=== PATIENT | female | born 1985 | race Caucasian/White ===

== ENCOUNTER 2019-04-17 10:02 | Emergency (ER) | payer BC, OTHER ==
[2019-04-17 10:07] VITALS: TEMP 98
[2019-04-17] MEDS ORDERED: SODIUM CHLORIDE 0.9% 1,000 ML IV STA (10:19)
[2019-04-17] MEDS ORDERED: ONDANSETRON 4 MG/2 ML VIAL IVP STA (10:19)
[2019-04-17] MEDS ORDERED: KETOROLAC 30 MG/ML 1 ML VIAL IVP STA (10:19)
--- NOTE | 2019-04-17 10:24 | ED ---
Back Pain HPI - General Chief Complaint: Back Pain/Injury Stated Complaint: Poss Kidney Stones Time Seen by Provider: 04/17/19 10:07 Source: patient Limitations: no limitations - History of Present Illness Initial Comments: Patient is a 34-year-old female presenting to emergency Department with complaints of right sided flank pain 3 days. Patient states her pain started in her right back 3 days ago and the pain has been steadily increasing. Patient describes her pain as intermittent, sharp, contraction-like. Patient has intermittent nausea and sweats as well. Patient denies any fever, chills, vomiting, diarrhea. Admits to mild burning with urination, no hematuria. Patient states she has had a previous kidney stone approximately 6 or 7 years ago and this feels similar nature. Patient has no other complaints at this time. Patient admits to history of tubal ligation, no other abdominal surgeries. Last bowel movement was yesterday was normal. Upon arrival to ER, vital signs are stable. - Related Data Previous Rx's Medication Instructions Recorded Ketorolac [Toradol] 10 mg PO Q8HR #15 tab 04/17/19 Ondansetron Odt [Zofran Odt] 4 mg PO Q8HR PRN #10 tab 04/17/19 Tamsulosin [Flomax] 0.4 mg PO DAILY #7 cap 04/17/19 Allergies Allergy/AdvReac Type Severity Reaction Status Date / Time Penicillins Allergy Unknown Verified 04/17/19 11:27 Childhood Review of Systems ROS Statement: Those systems with pertinent positive or pertinent negative responses have been documented in the HPI. ROS Other: All systems not noted in ROS Statement are negative. Past Medical History Past Medical History: Atrial Fibrillation History of Any Multi-Drug Resistant Organisms: None Reported Past Surgical History: Tubal Ligation Past Psychological History: No Psychological Hx Reported Smoking Status: Never smoker Past Alcohol Use History: None Reported Past Drug Use History: None Reported General Exam - General Exam Comments Initial Comments: GENERAL: Well-appearing, well-nourished and in no acute distress, appears uncomfortable. HEAD: Atraumatic, normocephalic. EYES: Pupils equal round and reactive to light, extraocular movements intact, sclera anicteric, conjunctiva are normal. ENT: TMs normal, nares patent, oropharynx clear without exudates. Moist mucous membranes. NECK: Normal range of motion, supple without lymphadenopathy or JVD. LUNGS: Breath sounds clear to auscultation bilaterally and equal. No wheezes rales or rhonchi. HEART: Regular rate and rhythm without murmurs, rubs or gallops. ABDOMEN: Right flank pain with palpation, right sided abdominal pain. Negative obturator, negative Rovsing sign. Soft, normoactive bowel sounds. No guarding, no rebound. No masses appreciated. : Deferred EXTREMITIES: Normal range of motion, no pitting or edema. No clubbing or cyanosis. NEUROLOGICAL: Cranial nerves II through XII grossly intact. Normal speech, normal gait. PSYCH: Normal mood, normal affect. SKIN: Warm, Dry, normal turgor, no rashes or lesions noted. Limitations: no limitations Course Vital Signs 04/17/19 04/17/19 10:04 12:22 Temperature 98 F Pulse Rate 89 70 Respiratory 16 18 Rate Blood Pressure 136/88 128/78 O2 Sat by Pulse 98 98 Oximetry Medical Decision Making - Medical Decision Making Patient is a 34-year-old female presenting with right flank pain 3 days. Patient describes the pain as intermittent, colicky. Patient has associated nausea and sweats with increasing pain. On exam patient has right-sided CVA tenderness as well as right abdominal pain. No fever, chills, vomiting, d iarrhea. Vital signs are stable upon arrival. CBC, CMP is normal. UA is normal. CT shows a nonobstructing 0.4 cm mid posterior right kidney stone. Patient declined vaginal exam at this time. Patient was given fluids, Zofran, Toradol for pain. Patient reports improvement in her symptoms. Patient is stable for discharge at this time. Patient will be discharged with pain medication, Flomax, Zofran. Patient is in agreement with this plan of care. Patient will follow up with her PCP as needed. Return parameters were discussed with the patient she verbalized understanding. Case discussed with Dr. Duval. - Lab Data Result diagrams: 04/17/19 10:32 04/17/19 10:32 Lab Results 04/17/19 04/17/19 04/17/19 Range/Units 10: 10: 10:32 WBC 6.5 (3.8-10.6) k/uL RBC 4.63 (3.80-5.40) m/uL Hgb 13.7 (11.4-16.0) gm/dL Hct 38.9 (34.0-46.0) % MCV 84.0 (80.0-100.0) fL MCH 29.5 (25.0-35.0) pg MCHC 35.2 (31.0-37.0) g/dL RDW 13.0 (11.5-15.5) % Plt Count 224 (150-450) k/uL Neutrophils % 57 % Lymphocytes % 34 % Monocytes % 4 % Eosinophils % 3 % Basophils % 1 % Neutrophils # 3.7 (1.3-7.7) k/uL Lymphocytes # 2.2 (1.0-4.8) k/uL Monocytes # 0.3 (0-1.0) k/uL Eosinophils # 0.2 (0-0.7) k/uL Basophils # 0.0 (0-0.2) k/uL Sodium (137-145) mmol/L Potassium (3.5-5.1) mmol/L Chloride (98-107) mmol/L Carbon Dioxide (22-30) mmol/L Anion Gap mmol/L BUN (7-17) mg/dL Creatinine (0.52-1.04) mg/dL Est GFR (CKD-EPI)AfAm (>60 ml/min/1.73 sqM) Est GFR (CKD-EPI)NonAf (>60 ml/min/1.73 sqM) Glucose (74-99) mg/dL Calcium (8.4-10.2) mg/dL Total Bilirubin (0.2-1.3) mg/dL AST (14-36) U/L ALT (9-52) U/L Alkaline Phosphatase (38-126) U/L Total Protein (6.3-8.2) g/dL Albumin (3.5-5.0) g/dL Urine Color Yellow Urine Appearance Clear (Clear) Urine pH 5.5 (5.0-8.0) Ur Specific Protivin 1.016 (1.001-1.035) Urine Protein Negative (Negative) Urine Glucose (UA) Negative (Negative) Urine Ketones Negative (Negative) Urine Blood Negative (Negative) Urine Nitrite Negative (Negative) Urine Bilirubin Negative (Negative) Urine Urobilinogen <2.0 (<2.0) mg/dL Ur Leukocyte Esterase Negative (Negative) Urine HCG, Qual Not Detected (Not Detectd) 04/17/19 Range/Units 10:32 WBC (3.8-10.6) k/uL RBC (3.80-5.40) m/uL Hgb (11.4-16.0) gm/dL Hct (34.0-46.0) % MCV (80.0-100.0) fL MCH (25.0-35.0) pg MCHC (31.0-37.0) g/dL RDW (11.5-15.5) % Plt Count (150-450) k/uL Neutrophils % % Lymphocytes % % Monocytes % % Eosinophils % % Basophils % % Neutrophils # (1.3-7.7) k/uL Lymphocytes # (1.0-4.8) k/uL Monocytes # (0-1.0) k/uL Eosinophils # (0-0.7) k/uL Basophils # (0-0.2) k/uL Sodium 138 (137-145) mmol/L Potassium 4.1 (3.5-5.1) mmol/L Chloride 104 (98-107) mmol/L Carbon Dioxide 23 (22-30) mmol/L Anion Gap 11 mmol/L BUN 13 (7-17) mg/dL Creatinine 0.75 (0.52-1.04) mg/dL Est GFR (CKD-EPI)AfAm >90 (>60 ml/min/1.73 sqM) Est GFR (CKD-EPI)NonAf >90 (>60 ml/min/1.73 sqM) Glucose 126 H (74-99) mg/dL Calcium 9.5 (8.4-10.2) mg/dL Total Bilirubin 0.9 (0.2-1.3) mg/dL AST 36 (14-36) U/L ALT 53 H (9-52) U/L Alkaline Phosphatase 73 (38-126) U/L Total Protein 7.2 (6.3-8.2) g/dL Albumin 4.3 (3.5-5.0) g/dL Urine Color Urine Appearance (Clear) Urine pH (5.0-8.0) Ur Specific Protivin (1.001-1.035) Urine Protein (Negative) Urine Glucose (UA) (Negative) Urine Ketones (Negative) Urine Blood (Negative) Urine Nitrite (Negative) Urine Bilirubin (Negative) Urine Urobilinogen (<2.0) mg/dL Ur Leukocyte Esterase (Negative) Urine HCG, Qual (Not Detectd) Disposition Clinical Impression: Kidney stone on right side, Abdominal pain Disposition: HOME SELF-CARE Condition: Stable Instructions (If sedation given, give patient instructions): Kidney Stones (ED) Additional Instructions: Please return to the Emergency Department if symptoms worsen or any other concerns. Follow-up with PCP or urology as discussed. Prescriptions: Tamsulosin [Flomax] 0.4 mg PO DAILY #7 cap Ketorolac [Toradol] 10 mg PO Q8HR #15 tab Ondansetron Odt [Zofran Odt] 4 mg PO Q8HR PRN #10 tab PRN Reason: Nausea Is patient prescribed a controlled substance at d/c from ED?: No Referrals: Tye Sanders III, MD [Primary Care Provider] - 1-2 days
[2019-04-17 10:45] LABS: Appearance,Urine Clear (Clear); Bilirubin,Urine Negative (Negative); Blood,Urine Negative (Negative); Color,Urine Yellow; Glucose,Urine (UA) Negative (Negative); Ketones,Urine Negative (Negative); Leukocyte Esterase,Urine Negative (Negative); Nitrite,Urine Negative (Negative); PH, Urine 5.5 (5.0-8.0); Protein,Urine Negative (Negative); Specific Gravity,Urine 1.016 (1.001-1.035); Urobilinogen,Urine <2.0 mg/dL (<2.0)
[2019-04-17 10:47] LABS: Basophils % (A) 1 %; Eosinophils # (A) 0.2 k/uL (0-0.7); Eosinophils % (A) 3 %; HCT 38.9 % (34.0-46.0); HGB 13.7 gm/dL (11.4-16.0); Lymphocytes # (A) 2.2 k/uL (1.0-4.8); Lymphocytes % (A) 34 %; MCH 29.5 pg (25.0-35.0); MCHC 35.2 g/dL (31.0-37.0); Mean Platelet Volume 5.6; Monocytes # (A) 0.3 k/uL (0-1.0); Monocytes % (A) 4 %; Neutrophils # (A) 3.7 k/uL (1.3-7.7); Neutrophils % (A) 57 %; Platelet Count 224 k/uL (150-450); RBC 4.63 m/uL (3.80-5.40); WBC 6.5 k/uL (3.8-10.6)
[2019-04-17 10:57] LABS: ALT 53 U/L (9-52); AST 36 U/L (14-36); African American GFR (CKD) >90 (>60 ml/min/1.73 sqM); Albumin 4.3 g/dL (3.5-5.0); Alkaline Phosphatase 73 U/L (38-126); Anion Gap 11 mmol/L; Blood Urea Nitrogen 13 mg/dL (7-17); Calcium 9.5 mg/dL (8.4-10.2); Carbon Dioxide 23 mmol/L (22-30); Chloride 104 mmol/L (98-107); Glucose 126 mg/dL (74-99); Potassium 4.1 mmol/L (3.5-5.1); Sodium 138 mmol/L (137-145); Total Bilirubin 0.9 mg/dL (0.2-1.3); Total Protein 7.2 g/dL (6.3-8.2)
--- NOTE | 2019-04-17 11:23 | CT ---
EXAMINATION TYPE: CT abdomen pelvis wo con DATE OF EXAM: 04/17/2019 COMPARISON: None INDICATION: Right flank pain DLP: 777.9 mGycm, Automated exposure control for dose reduction was used. CONTRAST: None Study performed without Oral Contrast TECHNIQUE: Axial images were obtained from above the diaphragm to the pubic rami in the axial plane a t 5 mm thick sections. Reconstructed images are reviewed on the computer in the coronal plane. FINDINGS: Limited CT sections are obtained the lung bases. The lung bases are clear. CT ABDOMEN: Liver: Normal Spleen: Normal Pancreas: Normal Adrenal glands: The adrenal glands are normal. Gallbladder: Normal Kidneys: No masses are evident. No hydronephrosis is present. No cysts are present. There is a non obstructing 0.4 cm calcification mid posterior right kidney. Aorta: Normal Inferior vena cava: Normal. CT PELVIS: Loops of bowel within the abdomen and pelvis are normal. Study is without oral contrast limiting bowel evaluation. Appendix: Normal as visualized. Urinary bladder: Normal. Genitourinary structures: Uterus and adnexal regions appear within normal limits. Tampon is present Osseous structures: No suspicious lytic or sclerotic lesions. IMPRESSIONS: 1. Nonobstructing right renal stone.
[2019-04-17] MEDS ORDERED: ACET/COD 300 MG/30 MG STARTER PACK 6 TAB BTL PO STA (11:48)
[2019-04-17 12:27] VITALS: BP 128/78; PULSE 70; RESP 18
== END 2019-04-17 12:22 | disposition home or self-care (01) ==
LOC: EC 10:02
DX: N20.0 Calculus of kidney (principal); Z88.0 Allergy status to penicillin; Z98.51 Tubal ligation status; Z53.20 Procedure and treatment not carried out because of patient's decision for unspecified reasons
CPT/HCPCS: 99284; 96374; 96375; 96361; 36415; 80053; 85025; 81003; 81025; 74176; J2405; J1885

== ENCOUNTER 2020-01-21 22:27 | Emergency (ER) | payer BC, OTHER ==
--- NOTE | 2020-01-21 23:08 | XR ---
EXAMINATION TYPE: XR ankle complete RT DATE OF EXAM: 01/21/2020 COMPARISON: NONE HISTORY: Ankle pain TECHNIQUE: 3 views FINDINGS: There is nondisplaced transverse fracture of the lateral malleolus. There is lateral soft t issue swelling. There is no dislocation. Joint spaces are fairly normal. The talus appears intact. IMPRESSION: Acute nondisplaced transverse fracture of the lateral malleolus.
--- NOTE | 2020-01-21 23:53 | ED ---
General Adult HPI - General Chief complaint: Extremity Injury, Lower Stated complaint: RT ankle injury Time Seen by Provider: 01/21/20 22:53 Source: patient, RN notes reviewed, old records reviewed Mode of arrival: ambulatory Limitations: no limitations - History of Present Illness Initial comments: 35-year-old female patient presents to ED with chief complaint of right ankle injury. Patient fourth that she stepped off of a step and had a right ankle inversion injury. Reports she landed on her hip. Denies any trauma to head or neck. Denies any use of blood thinners. Denies any chance of being . She complains right ankle pain. Denies any other complaints. Systemic: Pt denies fatigue, fever/chills, rash. Pt denies weakness, night sweat s, weight loss. Neuro: Pt denies headache, visual disturbances, syncope or pre-syncope. HEENT: Pt denies ocular discharge or irritation, otalgia, rhinorrhea, pharyngitis or notable lymphadenopathy. Cardiopulmonary: Pt denies chest pain, SOB, heart palpitations, dyspnea on exertion. Abdominal/GI: Pt denies abdominal pain, n/v/d. : Pt denies dysuria, burning w/ urination, frequency/urgency. Denies new onset urinary or bowel incontinence. Neuro: Pt denies new onset weakness, paresthesias. - Related Data Previous Rx's Medication Instructions Recorded Ketorolac [Toradol] 10 mg PO Q8HR #15 tab 04/17/19 Ondansetron Odt [Zofran Odt] 4 mg PO Q8HR PRN #10 tab 04/17/19 Tamsulosin [Flomax] 0.4 mg PO DAILY #7 cap 04/17/19 Allergies Allergy/AdvReac Type Severity Reaction Status Date / Time Penicillins Allergy Unknown Verified 04/17/19 11:27 Childhood Review of Systems ROS Statement: Those systems with pertinent positive or pertinent negative responses have been documented in the HPI. ROS Other: All systems not noted in ROS Statement are negative. Past Medical History Past Medical History: Atrial Fibrillation History of Any Multi-Drug Resistant Organisms: None Reported Past Surgical History: Tubal Ligation Past Psychological History: No Psychological Hx Reported Smoking Status: Never smoker Past Alcohol Use History: None Reported Past Drug Use History: None Reported General Exam - General Exam Comments Initial Comments: Constitutional: NAD, AOX3, Pt has pleasant affect. HEENT: NC/AT, trachea midline, neck supple, no lymphadenopathy. Posterior pharynx non erythematous, without exudates. External ears appear normal, without discharge. Mucous membranes moist. Eyes PERRLA, EOM intact. There is no scleral icterus. No pallor noted. Cardiopulmonary: RRR, no murmurs, rubs or gallops, no JVD noted. Lungs CTAB in anterior and posterior gutierrez. No peripheral edema. Abdominal exam: Abdomen soft and non-distended. Abdomen non-tender to palpation in all 4 quadrants. Bowel sounds active in LLQ. No hepatosplenomegaly. No ecchymosis Neuro: CN II-XII grossly intact. No nuchal rigidity. No raccon eyes, no mckeon sign, no hemotympanum. No cervical spinal tenderness. MSK: Right lateral malleolar region is tender to palpation. There is soft tissue swelling noted. Other areas of tenderness on for ankle. No proximal tib-fib tenderness. No hip tenderness. Lungs are equal length. Posterior tibialis pulses +2 bilaterally. Patient placed in a posterior ankle splint. Neurovascular intact before and after splint placement. Limitations: no limitations Course Vital Signs 01/21/20 01/21/20 22:35 23:32 Temperature 98.4 F 98.8 F Pulse Rate 102 H 84 Respiratory 18 18 Rate Blood Pressure 143/97 149/110 O2 Sat by Pulse 100 98 Oximetry Medical Decision Making - Medical Decision Making 35-year-old female patient was evaluated for evaluation of right ankle injury at that ankle inversion injury. Patient vital signs the some mild hypertension stable. Physical exam does display right distal fibula fracture. Patient placed a posterior ankle splint. Neurovascular intact before and after splint placement. Will follow up with orthopedic surgeon tonsils primary care provider. Will use crutches. Will not bear weight on lower extremity. Return to ER if condition worsens. Case discussed with Dr. Gee. Disposition Clinical Impression: Fracture of distal fibula Disposition: HOME SELF-CARE Condition: Stable Instructions (If sedation given, give patient instructions): Ankle Fracture (ED) Additional Instructions: Follow-up with primary care provider as well as orthopedic consult tomorrow. Continue to wear splint. Use crutches do not bear weight on right lower extremity. Return to ER if condition worsens. Is patient prescribed a controlled substance at d/c from ED?: No Referrals: Tye Sanders III, MD [Primary Care Provider] - 1-2 days Harshad Harding DO [Doctor of Osteopathic Medicine] - 1-2 days
[2020-01-22 10:30] VITALS: BP 136/93; PULSE 84; RESP 18; TEMP 98.8
== END 2020-01-22 00:13 | disposition home or self-care (01) ==
LOC: EC 22:27
DX: S82.61XA Displaced fracture of lateral malleolus of right fibula, initial encounter for closed fracture (principal); I10 Essential (primary) hypertension; Z88.0 Allergy status to penicillin; W01.0XXA Fall on same level from slipping, tripping and stumbling without subsequent striking against object, initial encounter
CPT/HCPCS: 99284

== ENCOUNTER 2022-01-19 05:33 | Day surgery (SDC) | payer BC ==
--- NOTE | 2022-01-18 07:19 | P.HPOB ---
History of Present Illness H&P Date: 01/18/22 Chief Complaint: Menorrhagia This patient is a pleasant 37 yr female with long standing menorrhagia who is requesting endometrial ablation for treatment. Evaluation has included a pelvic ultrasound which showed a normal endometrium/uterus. She is not interested in hormonal methods to control her bleeding. Review of Systems Genitourinary: Reports menorrhagia Past Medical History Past Medical History: No Reported History History of Any Multi-Drug Resistant Organisms: None Reported Past Surgical History: Tubal Ligation Past Anesthesia/Blood Transfusion Reactions: No Reported Reaction Past Psychological History: No Psychological Hx Reported Smoking Status: Never smoker Past Alcohol Use History: None Reported Past Drug Use History: None Reported Medications and Allergies Home Medications Medication Instructions Recorded Confirmed Type Ketorolac [Toradol] 10 mg PO Q8HR #15 tab 04/17/19 Rx Ondansetron Odt [Zofran Odt] 4 mg PO Q8HR PRN #10 tab 04/17/19 Rx Tamsulosin [Flomax] 0.4 mg PO DAILY #7 cap 04/17/19 Rx Allergies Allergy/AdvReac Type Severity Reaction Status Date / Time Penicillins Allergy Unknown Verified 04/17/19 11:27 Childhood Exam - OBG Physical Exam Abdomen: bowel sounds normal, no diffuse tenderness, no bruit present, no guarding noted, no hepatomegaly, no splenomegaly, no mass Vulva: both: normal Vagina: normal moisture, no discharge Cervix: no lesion, no discharge Uterus: normal size, normal contour Results Transvaginal ultrasound on 01/12 showed normal uterus and endometrium. Assessment and Plan Assessment: This is a pleasant 37 yr female with longstanding menorrhagia who is requesting endometrial ablation for treatment. Plan is hysteroscopy, dilation and curretage and Novasure endometrial ablation. I have discussed this surgery and risks with the patient, including: infection, bleeding, possible uterine perforation and/or thermal injury. All of her questions were answered and a written consent obtained. (1) Menorrhagia Status: Chronic Code(s): N92.0 - EXCESSIVE AND FREQUENT MENSTRUATION WITH REGULAR CYCLE SNOMED Code(s): 408955595
[~2022-01-19 05:33] MED LIST: Pre Op ABX Message 1 EACH MISC MISCELLANE ONE
[2022-01-19] MEDS ORDERED: LIDOCAINE 1% (10MG/ML) FOR IV START INTRADERMA PRN (05:43)
[2022-01-19] MEDS ORDERED: LACTATED RINGERS 1,000 ML IV SCH (05:43)
[2022-01-19] MEDS ORDERED: DEXAMETHASONE SOD PHOSPHATE 4 MG/ML 1 ML VIAL IV ONE (06:10)
[2022-01-19] MEDS ORDERED: ONDANSETRON 4 MG/2 ML VIAL ONE (06:14)
[2022-01-19] MEDS ORDERED: SUCCINYLCHOLINE CHLORIDE 100 MG/5 ML SYR IV ONE (06:48)
[2022-01-19] MEDS ORDERED: MIDAZOLAM 2 MG/2 ML VIAL ONE (06:48)
[2022-01-19] MEDS ORDERED: LIDOCAINE 2% INJ 20 MG/ML (2 ML VIAL) ONE (06:48)
[2022-01-19] MEDS ORDERED: PROPOFOL 10 MG/ML 20 ML VIAL IV ONE (06:48)
[2022-01-19] MEDS ORDERED: fentaNYL (PF) 50 MCG/ML 2 ML AMP ONE (06:48)
--- NOTE | 2022-01-19 07:27 | P.OP ---
Date of Procedure: 01/19/22 Preoperative Diagnosis: Menorrhagia Postoperative Diagnosis: Same Procedure(s) Performed: #1: Hysteroscopy. 2: Dilation and curettage. #3: NovaSure endometrial ablation. Anesthesia: MARSHALA Surgeon: Peter Gunter Estimated Blood Loss (ml): 10 Urine output (ml): 30 Pathology: other Condition: stable (Uterine curettings) Disposition: PACU Indications for Procedure: Please see dictated H&P for intimate details of this patient's admission. Brief summary this is a pleasant 37-year-old multiparous patient who is admitted to the hospital for endometrial ablation secondary to persistent menorrhagia. Patient I have discussed this procedure and risks and risks of infection, bleeding, possible uterine perforation. All the patient's questions are answered and a written consent is obtained. Operative Findings: This patient had normal-appearing endometrial cavity. Description of Procedure: This patient is taken to the operating room she is laid in the supine position. She subsequent undergoes general endotracheal anesthesia without incident. With an adequate level of anesthesia she's placed in dorsal lithotomy position. She has a vaginal perineal prep and drape. Examination under anesthesia shows a mid position uterus of normal size. Place weighted speculum posterior vagina. Bladder is drained for 30 mL of clear urine. Allis clamp was then placed on the anterior lip of the cervix. Uterus is then sounded to approximately 10-1/2 cm. Gentle dilation is then done to allow the hysteroscope easily and the uterine cavity. Using saline solution, hysteroscopy is performed. The uterine cavity appears normal. It is measured a length of 6.5 cm. Hysteroscope was then removed. More dilation is done to allow a curette easily uterine cavity a gentle but thorough 4 quadrant curettage is then done. With this done the NovaSure device is then opened and appears to be intact. It is set at a length of 6.5 cm and opens up to a width of 4.5 cm. After seating it in place it passes the cavity to retest. Is then enabled for 52 seconds at [address]. With this done the NovaSure device is then removed and appears to be intact. Hysteroscopy is performed again and the uterine cavity appears to be ablated up to the endocervix. Excellent results are noted. This done the procedure is ended. The Allis clamp and weighted speculum removed. All counts are correct 3. There are no complications. Patient is awakened from anesthesia and taken to recovery room in satisfactory condition.
[2022-01-19 07:33] VITALS: TEMP 98
[2022-01-19 08:43] VITALS: BP 132/91; PULSE 80
== END 2022-01-19 09:03 | disposition home or self-care (01) ==
LOC: OR 05:33
PROVIDERS: ATTEND Obstetrics & Gynecology
DX: N92.0 Excessive and frequent menstruation with regular cycle (principal); Z98.51 Tubal ligation status; K21.9 Gastro-esophageal reflux disease without esophagitis; Z79.899 Other long term (current) drug therapy; Z88.0 Allergy status to penicillin
CPT/HCPCS: 81025; 88305; 58563; J2250; J1100; J2405; J3010; J0330; J2704; J2001

== ENCOUNTER 2022-04-09 06:05 | Emergency (ER) | payer BC ==
[2022-04-09 06:11] VITALS: TEMP 98.9
[2022-04-09] MEDS ORDERED: SODIUM CHLORIDE 0.9% 1,000 ML IV STA (06:27)
--- NOTE | 2022-04-09 06:29 | ED ---
General Adult HPI - General Chief complaint: Chest Pain Stated complaint: Chest Pressure Time Seen by Provider: 04/09/22 06:15 Source: patient, RN notes reviewed Mode of arrival: ambulatory Limitations: no limitations - History of Present Illness Initial comments: 37-year-old female presents emergency Department with chief complaint of chest tightness. Patient states that she had COVID-19 2 weeks ago as a positive test at home. Patient states started feeling better started feeling sick again on Saturday. Patient states she just feels tightness in her chest feels like it's hard to the deep breath. Patient denies any prior lung disease doesn't that she was diagnosed with A. fib several years ago emergency department or follow with cardiology. Patient states she is having persistent palpitations denies any nausea vomiting diarrhea constipation she admits to subjective fever or chills - Related Data Previous Rx's Medication Instructions Recorded Albuterol Sulfate [Proair Hfa] 1 - 2 puff INHALATION Q4HR PRN 04/09/22 #8.5 gm Azithromycin [Zithromax Z Pack] 0 tab PO DIRECTED #6 tab 04/09/22 Allergies Allergy/AdvReac Type Severity Reaction Status Date / Time amoxicillin Allergy Unknown Verified 04/09/22 07:56 Childhood Penicillins Allergy Unknown Verified 04/09/22 07:56 Childhood Review of Systems ROS Statement: Those systems with pertinent positive or pertinent negative responses have been documented in the HPI. ROS Other: All systems not noted in ROS Statement are negative. Past Medical History Past Medical History: Atrial Fibrillation History of Any Multi-Drug Resistant Organisms: None Reported Past Surgical History: Appendectomy, Tubal Ligation Additional Past Surgical History / Comment(s): TUBES IN EARS CHILD Past Psychological History: No Psychological Hx Reported Past Alcohol Use History: None Reported Past Drug Use History: None Reported General Exam Limitations: no limitations General appearance: alert, in no apparent distress Head exam: Present: atraumatic, normocephalic, normal inspection Eye exam: Present: normal appearance, PERRL, EOMI. Absent: scleral icterus, conjunctival injection, periorbital swelling ENT exam: Present: normal exam, normal oropharynx, mucous membranes moist Neck exam: Present: normal inspection, full ROM. Absent: tenderness, meningismus, lymphadenopathy Respiratory exam: Present: normal lung sounds bilaterally. Absent: respiratory distress, wheezes, rales, rhonchi, stridor Cardiovascular Exam: Present: normal rhythm, tachycardia, normal heart sounds. 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 I do believe that this may be infectious in nature. Patient will be discharged with inhaler and antibiotics. She'll follow-up PCP return parameters discussed patient agrees - Lab Data Result diagrams: 04/09/22 06:38 04/09/22 06:38 Lab Results 04/09/22 04/09/22 04/09/22 Range/Units 06:38 06:38 06:38 WBC 6.3 (3.8-10.6) k/uL RBC 4.85 (3.80-5.40) m/uL Hgb 14.2 (11.4-16.0) gm/dL Hct 41.4 (34.0-46.0) % MCV 85.4 (80.0-100.0) fL MCH 29.2 (25.0-35.0) pg MCHC 34.2 (31.0-37.0) g/dL RDW 13.2 (11.5-15.5) % Plt Count 177 (150-450) k/uL MPV 6.7 Neutrophils % 70 % Lymphocytes % 19 % Monocytes % 8 % Eosinophils % 1 % Basophils % 0 % Neutrophils # 4.4 (1.3-7.7) k/uL Lymphocytes # 1.2 (1.0-4.8) k/uL Monocytes # 0.5 (0-1.0) k/uL Eosinophils # 0.1 (0-0.7) k/uL Basophils # 0.0 (0-0.2) k/uL PT 10.3 (9.0-12.0) sec INR 0.9 (<1.2) APTT 25.4 (22.0-30.0) sec D-Dimer 0.24 (<0.60) mg/L FEU Sodium 135 L (137-145) mmol/L Potassium 3.8 (3.5-5.1) mmol/L Chloride 100 (98-107) mmol/L Carbon Dioxide 24 (22-30) mmol/L Anion Gap 11 mmol/L BUN 9 (7-17) mg/dL Creatinine 0.73 (0.52-1.04) mg/dL Est GFR (CKD-EPI)AfAm >90 (>60 ml/min/1.73 sqM) Est GFR (CKD-EPI)NonAf >90 (>60 ml/min/1.73 sqM) Glucose 138 H (74-99) mg/dL Calcium 8.9 (8.4-10.2) mg/dL Magnesium 1.6 (1.6-2.3) mg/dL Total Bilirubin 1.2 (0.2-1.3) mg/dL AST 31 (14-36) U/L ALT 37 H (4-34) U/L Alkaline Phosphatase 94 (38-126) U/L Troponin I (0.000-0.034) ng/mL Total Protein 7.0 (6.3-8.2) g/dL Albumin 4.3 (3.5-5.0) g/dL 04/09/22 Range/Units 06:38 WBC (3.8-10.6) k/uL RBC (3.80-5.40) m/uL Hgb (11.4-16.0) gm/dL Hct (34.0-46.0) % MCV (80.0-100.0) fL MCH (25.0-35.0) pg MCHC (31.0-37.0) g/dL RDW (11.5-15.5) % Plt Count (150-450) k/uL MPV Neutrophils % % Lymphocytes % % Monocytes % % Eosinophils % % Basophils % % Neutrophils # (1.3-7.7) k/uL Lymphocytes # (1.0-4.8) k/uL Monocytes # (0-1.0) k/uL Eosinophils # (0-0.7) k/uL Basophils # (0-0.2) k/uL PT (9.0-12.0) sec INR (<1.2) APTT (22.0-30.0) sec D-Dimer (<0.60) mg/L FEU Sodium (137-145) mmol/L Potassium (3.5-5.1) mmol/L Chloride (98-107) mmol/L Carbon Dioxide (22-30) mmol/L Anion Gap mmol/L BUN (7-17) mg/dL Creatinine (0.52-1.04) mg/dL Est GFR (CKD-EPI)AfAm (>60 ml/min/1.73 sqM) Est GFR (CKD-EPI)NonAf (>60 ml/min/1.73 sqM) Glucose (74-99) mg/dL Calcium (8.4-10.2) mg/dL Magnesium (1.6-2.3) mg/dL Total Bilirubin (0.2-1.3) mg/dL AST (14-36) U/L ALT (4-34) U/L Alkaline Phosphatase (38-126) U/L Troponin I <0.012 (0.000-0.034) ng/mL Total Protein (6.3-8.2) g/dL Albumin (3.5-5.0) g/dL Disposition Clinical Impression: Acute bronchitis Disposition: HOME SELF-CARE Condition: Stable Instructions (If sedation given, give patient instructions): Acute Bronchitis (ED) Additional Instructions: Please return to the Emergency Department if symptoms worsen or any other concerns. Prescriptions: Albuterol Sulfate [Proair Hfa] 1 - 2 puff INHALATION Q4HR PRN #8.5 gm PRN Reason: difficulty in breathing Azithromycin [Zithromax Z Pack] 0 tab PO DIRECTED #6 tab Is patient prescribed a controlled substance at d/c from ED?: No Referrals: Anabell Lynne MD [Primary Care Provider] - 1-2 days Time of Disposition: 08:26
[2022-04-09 07:04] LABS: Basophils % (A) 0 %; Eosinophils # (A) 0.1 k/uL (0-0.7); Eosinophils % (A) 1 %; HCT 41.4 % (34.0-46.0); HGB 14.2 gm/dL (11.4-16.0); Lymphocytes # (A) 1.2 k/uL (1.0-4.8); Lymphocytes % (A) 19 %; MCH 29.2 pg (25.0-35.0); MCHC 34.2 g/dL (31.0-37.0); MCV 85.4 fL (80.0-100.0); Mean Platelet Volume 6.7; Monocytes # (A) 0.5 k/uL (0-1.0); Monocytes % (A) 8 %; Neutrophils # (A) 4.4 k/uL (1.3-7.7); Neutrophils % (A) 70 %; Platelet Count 177 k/uL (150-450); RBC 4.85 m/uL (3.80-5.40); RDW 13.2 % (11.5-15.5); WBC 6.3 k/uL (3.8-10.6)
[2022-04-09 07:18] LABS: ALT 37 U/L (4-34); AST 31 U/L (14-36); African American GFR (CKD) >90 (>60 ml/min/1.73 sqM); Albumin 4.3 g/dL (3.5-5.0); Alkaline Phosphatase 94 U/L (38-126); Anion Gap 11 mmol/L; Blood Urea Nitrogen 9 mg/dL (7-17); Calcium 8.9 mg/dL (8.4-10.2); Carbon Dioxide 24 mmol/L (22-30); Chloride 100 mmol/L (98-107); Glucose 138 mg/dL (74-99); Magnesium 1.6 mg/dL (1.6-2.3); Non-African American GFR(CKD) >90 (>60 ml/min/1.73 sqM); Potassium 3.8 mmol/L (3.5-5.1); Sodium 135 mmol/L (137-145); Total Bilirubin 1.2 mg/dL (0.2-1.3)
[2022-04-09 07:22] LABS: INR 0.9 (<1.2); Partial Thromboplastin Time 25.4 sec (22.0-30.0); Prothrombin Time 10.3 sec (9.0-12.0)
--- NOTE | 2022-04-09 07:39 | XR ---
EXAMINATION TYPE: XR chest 2V DATE OF EXAM: 04/09/2022 COMPARISON: 10/05/2010 HISTORY: 37-year-old female with chest pain TECHNIQUE: PA and lateral views FINDINGS: Heart normal size. Aorta and pulmonary vasculature within normal limits. No consolidation or pleural effusion. IMPRESSION: No acute cardiopulmonary process.
[2022-04-09 08:33] VITALS: BP 144/81; PULSE 102; RESP 18
== END 2022-04-09 08:35 | disposition home or self-care (01) ==
LOC: EC 06:05
DX: J40 Bronchitis, not specified as acute or chronic (principal); I48.91 Unspecified atrial fibrillation; Z88.0 Allergy status to penicillin; Z79.51 Long term (current) use of inhaled steroids; Z79.899 Other long term (current) drug therapy
CPT/HCPCS: 36415; 71046; 80053; 83735; 84484; 85025; 85379; 85610; 85730; 93005; 96360; 96361; 99284

== ENCOUNTER 2022-08-01 18:00 | Emergency (ER) | payer BC ==
[2022-08-01 18:10] VITALS: TEMP 98.6
[2022-08-01] MEDS ORDERED: diphenhydrAMINE 50 MG/ML 1 ML VIAL IVP STA (18:34)
[2022-08-01] MEDS ORDERED: methylPREDNISolone SOD SUCCI 125 MG/2 ML VIAL IM ONE (18:34)
--- NOTE | 2022-08-01 18:43 | ED ---
General Adult HPI - General Chief complaint: Skin/Abscess/Foreign Body Stated complaint: Rash,Muscle Weakness Time Seen by Provider: 08/01/22 18:25 Source: patient, RN notes reviewed Mode of arrival: ambulatory Limitations: no limitations - History of Present Illness Initial comments: 37-year-old female with no significant past medical history presents to the emergency department the chief complaint of rash. She reports that this morning she woke up and noticed a diffuse rash on her arms and she said it has progressively gotten worse throughout the day. She also complains of accompanying symptoms of generalized fatigue in her upper extremities. She has never had this before. She denies any allergies to food. She denies new detergents, lotions, or soap use. She took benadryl today without relief. She denies fever, cough, scratchy throat, difficulty in breathing, shortness of breath. - Related Data Previous Rx's Medication Instructions Recorded Albuterol Sulfate [Proair Hfa] 1 - 2 puff INHALATION Q4HR PRN 04/09/22 #8.5 gm Azithromycin [Zithromax Z Pack] 0 tab PO DIRECTED #6 tab 04/09/22 predniSONE [Deltasone] 20 mg PO DAILY 5 Days #10 tab 08/01/22 Allergies Allergy/AdvReac Type Severity Reaction Status Date / Time amoxicillin Allergy Unknown Verified 08/01/22 18:10 Childhood Penicillins Allergy Unknown Verified 08/01/22 18:10 Childhood Review of Systems ROS Statement: Those systems with pertinent positive or pertinent negative responses have been documented in the HPI. ROS Other: All systems not noted in ROS Statement are negative. Past Medical History Past Medical History: Atrial Fibrillation History of Any Multi-Drug Resistant Organisms: None Reported Past Surgical History: Appendectomy, Tubal Ligation Additional Past Surgical History / Comment(s): TUBES IN EARS CHILD Past Psychological History: No Psychological Hx Reported Smoking Status: Never smoker Past Alcohol Use History: Occasional Past Drug Use History: Marijuana General Exam Limitations: no limitations General appearance: alert, in no apparent distress Head exam: Present: atraumatic, normocephalic, normal inspection Eye exam: Present: normal appearance, PERRL, EOMI. Absent: scleral icterus, conjunctival injection, periorbital swelling ENT exam: Present: normal exam, mucous membranes moist Neck exam: Present: normal inspection. Absent: tenderness, meningismus, lymphadenopathy Respiratory exam: Present: normal lung sounds bilaterally. Absent: respiratory distress, wheezes, rales, rhonchi, stridor Cardiovascular Exam: Present: regular rate, normal rhythm, normal heart sounds. Absent: systolic murmur, diastolic murmur, rubs, gallop, clicks GI/Abdominal exam: Present: soft, normal bowel sounds. Absent: distended, tenderness, guarding, rebound, rigid Extremities exam: Present: normal inspection, full ROM, normal capillary refill. Absent: tenderness, pedal edema, joint swelling, calf tenderness Back exam: Present: normal inspection Neurological exam: Present: alert, oriented X3, CN II-XII intact Psychiatric exam: Present: normal affect, normal mood Skin exam: Present: warm, dry, intact, normal color, rash (Diffuse red, flat rash to chest and BL upper extremeties, no lesions, pustules, weeping. ) Course Vital Signs 08/01/22 08/01/22 18:08 20:00 Temperature 98.6 F Pulse Rate 83 82 Respiratory 20 16 Rate Blood Pressure 141/91 126/82 O2 Sat by Pulse 99 98 Oximetry Medical Decision Making - Medical Decision Making Was pt. sent in by a medical professional or institution (, PA, MEASUREMENT COORDINATOR, urgent care, hospital, or senior living...) When possible be specific @ -[No] Did you speak to anyone other than the patient for history (EMS, parent, family, police, friend...)? What history was obtained from this source @ -[No] Did you review nursing and triage notes (agree or disagree)? Why? @ -[I reviewed and agree with nursing and triage notes] Were old charts reviewed (outside hosp., previous admission, EMS record, old EKG, old radiological studies, urgent care reports/EKG's, senior living records)? Report findings @ -[No old charts were reviewed] Differential Diagnosis (chest pain, altered mental status, abdominal pain women, abdominal pain men, vaginal bleeding, weakness, fever, dyspnea, syncope, headache, dizziness, GI bleed, back pain, seizure, CVA, palpatations, mental health)? @ -[not applicable] EKG interpreted by me (3pts min.). @ -[As above] X-rays interpreted by me (1pt min.). @ -[None done] CT interpreted by me (1pt min.). @ -[None done] U/S interpreted by me (1pt. min.). @ -[None done] What testing was considered but not performed or refused? (CT, X-rays, U/S, labs)? Why? @ -[None] What meds were considered but not given or refused? Why? @ -[None] Did you discuss the management of the patient with other professionals (professionals i.e. Dr., PA, MEASUREMENT COORDINATOR, lab, RT, psych nurse, social service assistant, childrens club attendant, teacher, banking services officer, rn case manager hospice)? Give summary @ -[No] Was smoking cessation discussed for >3mins.? @ -[No] Was critical care preformed (if so, how long)? @ -[No] Were there social determinants of health that impacted care today? How? (Homelessness, low income, unemployed, alcoholism, drug addiction, transportation, low edu. Level, literacy, decrease access to med. care, shelter, rehab)? @ -[No] Was there de-escalation of care discussed even if they declined (Discuss DNR or withdrawal of care, Hospice)? DNR status @ -[No] What co-morbidities impacted this encounter? (DM, HTN, Smoking, COPD, CAD, Cancer, CVA, ARF, Chemo, Hep., AIDS, mental health diagnosis, sleep apnea, morbid obesity)? @ -[None] Was patient admitted / discharged? Hospital course, mention meds given and route, prescriptions, significant lab abnormalities, going to OR and other pertinent info. @ -37 year-old female presents to the emergency department with rash. She had a history and physical performed while in the emergency department physical exam reveals diffuse, flat rash on the upper extremities. PAtient was given solumedrol and benadryl with symptomatic relief. She was given a prescription for prednisone. s He was encouraged to follow up with his primary care doctor within 1-2 days if symptoms worsen or persist. Return precautions were discussed. Patient was discharged in stable condition all questions and comments were addressed. I discussed the case with MYA Lenz who agrees with the plan of care. Undiagnosed new problem with uncertain prognosis? @ -[No] Drug Therapy requiring intensive monitoring for toxicity (Heparin, Nitro, Insulin, Cardizem)? @ -[No] Were any procedures done? @ -[No] Diagnosis/symptom? @ -spontaneous urticaria Acute, or Chronic, or Acute on Chronic? @ -acute Uncomplicated (without systemic symptoms) or Complicated (systemic symptoms)? @ -uncomplicated Side effects of treatment? @ -[No] Exacerbation, Progression, or Severe Exacerbation? @ -[No] Poses a threat to life or bodily function? How? (Chest pain, [place], [place], pneumonia, PE, COPD, DKA, ARF, appy, cholecystitis, CVA, Diverticulitis, Homicidal, Suicidal, threat to staff... and all critical care pts) @ -[No] - Lab Data Result diagrams: 08/01/22 18:48 08/01/22 18:48 Lab Results 08/01/22 08/01/22 Range/Units 18:48 18:48 WBC 8.2 (3.8-10.6) k/uL RBC 4.62 (3.80-5.40) m/uL Hgb 14.0 (11.4-16.0) gm/dL Hct 39.4 (34.0-46.0) % MCV 85.2 (80.0-100.0) fL MCH 30.2 (25.0-35.0) pg MCHC 35.5 (31.0-37.0) g/dL RDW 13.4 (11.5-15.5) % Plt Count 206 (150-450) k/uL MPV 7.3 Neutrophils % 62 % Lymphocytes % 30 % Monocytes % 4 % Eosinophils % 2 % Basophils % 0 % Neutrophils # 5.0 (1.3-7.7) k/uL Lymphocytes # 2.5 (1.0-4.8) k/uL Monocytes # 0.3 (0-1.0) k/uL Eosinophils # 0.2 (0-0.7) k/uL Basophils # 0.0 (0-0.2) k/uL Sodium 136 L (137-145) mmol/L Potassium 3.9 (3.5-5.1) mmol/L Chloride 104 (98-107) mmol/L Carbon Dioxide 24 (22-30) mmol/L Anion Gap 8 mmol/L BUN 12 (7-17) mg/dL Creatinine 0.65 (0.52-1.04) mg/dL Est GFR (CKD-EPI)AfAm >90 (>60 ml/min/1.73 sqM) Est GFR (CKD-EPI)NonAf >90 (>60 ml/min/1.73 sqM) Glucose 100 H (74-99) mg/dL Calcium 9.0 (8.4-10.2) mg/dL Disposition Clinical Impression: Urticaria Disposition: HOME SELF-CARE Condition: Stable Instructions (If sedation given, give patient instructions): Acute Rash (ED) Additional Instructions: Please return to the nearest emergency department if symptoms worsen or persist. Prescriptions: predniSONE [Deltasone] 20 mg PO DAILY 5 Days #10 tab Is patient prescribed a controlled substance at d/c from ED?: No Referrals: None,Stated [Primary Care Provider] - 1-2 days Time of Disposition: 20:11
[2022-08-01 19:04] LABS: Basophils % (A) 0 %; Eosinophils # (A) 0.2 k/uL (0-0.7); Eosinophils % (A) 2 %; HCT 39.4 % (34.0-46.0); Lymphocytes # (A) 2.5 k/uL (1.0-4.8); Lymphocytes % (A) 30 %; MCH 30.2 pg (25.0-35.0); MCHC 35.5 g/dL (31.0-37.0); MCV 85.2 fL (80.0-100.0); Mean Platelet Volume 7.3; Monocytes # (A) 0.3 k/uL (0-1.0); Monocytes % (A) 4 %; Neutrophils % (A) 62 %; Platelet Count 206 k/uL (150-450); RBC 4.62 m/uL (3.80-5.40); RDW 13.4 % (11.5-15.5); WBC 8.2 k/uL (3.8-10.6)
[2022-08-01 19:17] LABS: African American GFR (CKD) >90 (>60 ml/min/1.73 sqM); Anion Gap 8 mmol/L; Blood Urea Nitrogen 12 mg/dL (7-17); Carbon Dioxide 24 mmol/L (22-30); Chloride 104 mmol/L (98-107); Glucose 100 mg/dL (74-99); Non-African American GFR(CKD) >90 (>60 ml/min/1.73 sqM); Potassium 3.9 mmol/L (3.5-5.1); Sodium 136 mmol/L (137-145)
[2022-08-01 20:01] VITALS: BP 126/82; PULSE 82; RESP 16
== END 2022-08-01 20:34 | disposition home or self-care (01) ==
LOC: EC 18:00
DX: L50.9 Urticaria, unspecified (principal); I48.91 Unspecified atrial fibrillation; F12.90 Cannabis use, unspecified, uncomplicated; Z88.0 Allergy status to penicillin
CPT/HCPCS: 36415; 80048; 85025; 99284; 96372; 96374; J1200; J2930

== ENCOUNTER → 2022-10-12 | Outpatient (CLI) | payer BC ==
--- NOTE | 2022-10-25 09:42 | EM ---
Event monitor shows sinus mechanism with PACs Normal heart rates When the patient complained of dizziness and palpitations and fluttering PACs were noted No sustained tachycardia or bradycardia arrhythmias MTDD
== END | disposition home or self-care (01) ==
LOC: RADECHMAIN 07:58
PROVIDERS: ATTEND Family Medicine
DX: R00.2 Palpitations (principal)
CPT/HCPCS: 93270

== ENCOUNTER 2023-05-01 11:01 | Emergency (ER) | payer BC ==
[2023-05-01 11:25] VITALS: TEMP 98.3
[2023-05-01] MEDS ORDERED: KETOROLAC 15 MG/ML 1 ML VIAL IVP STA (11:32)
[2023-05-01] MEDS ORDERED: ONDANSETRON 4 MG/2 ML VIAL IVP STA (11:32)
[2023-05-01] MEDS ORDERED: SODIUM CHLORIDE 0.9% 1,000 ML IV STA (11:32)
--- NOTE | 2023-05-01 11:34 | ED ---
Abdominal Pain HPI - General Chief Complaint: Abdominal Pain Stated Complaint: RIGHT ABDO/BACK PAIN Time Seen by Provider: 05/01/23 11:18 Source: patient Mode of arrival: ambulatory Limitations: no limitations - History of Present Illness Initial Comments: 38-year-old female with a past surgical history significant for appendectomy presented to the ED with a chief complaint of back pain. Patient states 2 days ago started to experience right sided back pain radiating to her right lower abdomen. Since onset, patient reports pain has worsened in severity. Associated nausea. Pain is an 8 out of 10 in severity. Pain is burning in nature. Patient describes it as feeling as if "something is ripping inside me". Denies urinary symptoms. No chest pain or shortness of breath. No changes in bowel habits. No other complaints. - Related Data Previous Rx's Medication Instructions Recorded Albuterol Sulfate [Proair Hfa] 1 - 2 puff INHALATION Q4HR PRN 04/09/22 #8.5 gm Azithromycin [Zithromax Z Pack] 0 tab PO DIRECTED #6 tab 04/09/22 predniSONE [Deltasone] 20 mg PO DAILY 5 Days #10 tab 08/01/22 Allergies Allergy/AdvReac Type Severity Reaction Status Date / Time amoxicillin Allergy Unknown Verified 05/01/23 11:06 Childhood Penicillins Allergy Unknown Verified 05/01/23 11:06 Childhood Review of Systems ROS Statement: Those systems with pertinent positive or pertinent negative responses have been documented in the HPI. ROS Other: All systems not noted in ROS Statement are negative. Past Medical History Past Medical History: Atrial Fibrillation History of Any Multi-Drug Resistant Organisms: None Reported Past Surgical History: Appendectomy, Tubal Ligation Additional Past Surgical History / Comment(s): TUBES IN EARS CHILD Past Psychological History: No Psychological Hx Reported Smoking Status: Never smoker Past Alcohol Use History: Occasional Past Drug Use History: Marijuana General Exam Limitations: no limitations General appearance: alert Eye exam: Present: normal appearance Neck exam: Present: normal inspection Respiratory exam: Present: normal lung sounds bilaterally Cardiovascular Exam: Present: regular rate, normal rhythm GI/Abdominal exam: Present: soft (Diffuse right-sided abdominal tenderness to palpation. Abdomen soft. No rebound guarding or rigidity. Right CVA tenderness to percussion.) Neurological exam: Present: alert, oriented X3 Skin exam: Present: warm, dry Course Vital Signs 05/01/23 11:06 Temperature 98.3 F Pulse Rate 75 Respiratory 16 Rate O2 Sat by Pulse 95 Oximetry Medical Decision Making - Medical Decision Making Was pt. sent in by a medical professional or institution (DARIUS Stoll, [employer] FOUNDER AND CHIEF STRATEGY OFFICER, urgent care, hospital, or retirement...) When possible be specific @ -No Did you speak to anyone other than the patient for history (EMS, parent, family, police, friend...)? What history was obtained from this source @ -No Did you review nursing and triage notes (agree or disagree)? Why? @ -I reviewed and agree with nursing and triage notes Were old charts reviewed (outside hosp., previous admission, EMS record, old EKG, old radiological studies, urgent care reports/EKG's, retirement records)? Report findings @ -No old charts were reviewed Differential Diagnosis (chest pain, altered mental status, abdominal pain women, abdominal pain men, vaginal bleeding, weakness, fever, dyspnea, syncope, headache, dizziness, GI bleed, back pain, seizure, CVA, palpatations, mental health, musculoskeletal)? @ -Differential Abdominal Pain Women: Appendicitis, Cholecystitis, diverticulosis, ischemic bowel, pancreatitis, hepatitis, UTI, gastroenteritis, AAA, incarcerated hernia, bowel obstruction, constipation, inflammatory bowel, hepatitis, peptic ulcer disease, splenic infa rction, perforated viscus, vulvitis, ovarian torsion, PID, kidney stone, placenta abruption, this is not meant to be an all-inclusive list EKG interpreted by me (3pts min.). @ -None X-rays interpreted by me (1pt min.). @ -None done CT interpreted by me (1pt min.). @ -CT abdomen and pelvis without contrast interpreted by me showing no evidence of acute finding. U/S interpreted by me (1pt. min.). @ -None done What testing was considered but not performed or refused? (CT, X-rays, U/S, labs)? Why? @ -None What meds were considered but not given or refused? Why? @ -None Did you discuss the management of the patient with other professionals (professionals i.e. DARIUS Stoll, [employer] FOUNDER AND CHIEF STRATEGY OFFICER, lab, RT, psych nurse, licensed social worker, filer metal patterns, teacher, uniform patrol police officer, field case manager)? Give summary @ -No Was smoking cessation discussed for >3mins.? @ -No Was critical care preformed (if so, how long)? @ -No Were there social determinants of health that impacted care today? How? (Homelessness, low income, unemployed, alcoholism, drug addiction, transportation, low edu. Level, literacy, decrease access to med. care, [facility], rehab)? @ -No Was there de-escalation of care discussed even if they declined (Discuss DNR or withdrawal of care, Hospice)? DNR status @ -No What co-morbidities impacted this encounter? (DM, HTN, Smoking, COPD, CAD, Cancer, CVA, ARF, Chemo, Hep., AIDS, mental health diagnosis, sleep apnea, morbid obesity)? @ -None Was patient admitted / discharged? Hospital course, mention meds given and route, prescriptions, significant lab abnormalities, going to OR and other pertinent info. @ -Discharge 88-year-old female presenting to the ED with a chief complaint of flank pain radiating to her abdomen onset yesterday. CT abdomen and pelvis revealed no acute findings. Laboratory studies remarkable for a urine showing greater than 182 red blood cells, 14 white blood cells, 15 squamous cells, rare bacteria, large blood. Remainder laboratory studies largely unremarkable. At this time, symptoms well controlled. Patient likely passed the stone. No evidence of obstructing stone at this time or other acute process. Patient discharged home in stable condition. Discussed return precautions patient who verbalizes agreement. Undiagnosed new problem with uncertain prognosis? @ -No Drug Therapy requiring intensive monitoring for toxicity (Heparin, Nitro, Insulin, Cardizem)? @ -No Were any procedures done? @ -No Diagnosis/symptom? @ -Flank pain Acute, or Chronic, or Acute on Chronic? @ -Acute Uncomplicated (without systemic symptoms) or Complicated (systemic symptoms)? @ -Uncomplicated Side effects of treatment? @ -No Exacerbation, Progression, or Severe Exacerbation? @ -No Poses a threat to life or bodily function? How? (Chest pain, USA, [place], pneumonia, PE, COPD, DKA, ARF, appy, cholecystitis, CVA, Diverticulitis, Homicidal, Suicidal, threat to staff... and all critical care pts) @ -No - Lab Data Result diagrams: 05/01/23 11:59 05/01/23 11:59 Lab Results 05/01/23 05/01/23 05/01/23 Range/Units 11:59 11:59 12:20 WBC 7.1 (3.8-10.6) k/uL RBC 5.11 (3.80-5.40) m/uL Hgb 15.2 (11.4-16.0) gm/dL Hct 44.2 (34.0-46.0) % MCV 86.6 (80.0-100.0) fL MCH 29.8 (25.0-35.0) pg MCHC 34.4 (31.0-37.0) g/dL RDW 12.9 (11.5-15.5) % Plt Count 217 (150-450) k/uL MPV 7.4 Neutrophils % 61 % Lymphocytes % 29 % Monocytes % 5 % Eosinophils % 2 % Basophils % 0 % Neutrophils # 4.4 (1.3-7.7) k/uL Lymphocytes # 2.0 (1.0-4.8) k/uL Monocytes # 0.4 (0-1.0) k/uL Eosinophils # 0.2 (0-0.7) k/uL Basophils # 0.0 (0-0.2) k/uL Sodium 138 (137-145) mmol/L Potassium 3.9 (3.5-5.1) mmol/L Chloride 103 (98-107) mmol/L Carbon Dioxide 20 L (22-30) mmol/L Anion Gap 15 mmol/L BUN 12 (7-17) mg/dL Creatinine 0.62 (0.52-1.04) mg/dL Est GFR (CKD-EPI)AfAm >90 (>60 ml/min/1.73 sqM) Est GFR (CKD-EPI)NonAf >90 (>60 ml/min/1.73 sqM) Glucose 88 (74-99) mg/dL Calcium 9.2 (8.4-10.2) mg/dL Total Bilirubin 1.0 (0.2-1.3) mg/dL AST 25 (14-36) U/L ALT 32 (4-34) U/L Alkaline Phosphatase 76 (38-126) U/L Total Protein 7.6 (6.3-8.2) g/dL Albumin 4.5 (3.5-5.0) g/dL Amylase 64 (30-110) U/L Lipase 80 (23-300) U/L Urine Color Yellow Urine Appearance Cloudy H (Clear) Urine pH 5.5 (5.0-8.0) Ur Specific [place] 1.027 (1.001-1.035) Urine Protein 1+ H (Negative) Urine Glucose (UA) Negative (Negative) Urine Ketones Negative (Negative) Urine Blood Large H (Negative) Urine Nitrite Negative (Negative) Urine Bilirubin Negative (Negative) Urine Urobilinogen <2.0 (<2.0) mg/dL Ur Leukocyte Esterase Large H (Negative) Urine RBC >182 H (0-5) /hpf Urine WBC 14 H (0-5) /hpf Ur Squamous Epith Cells 15 H (0-4) /hpf Urine Bacteria Rare H (None) /hpf Urine Mucus Many H (None) /hpf Urine HCG, Qual (Not Detectd) 05/01/23 Range/Units 12:20 WBC (3.8-10.6) k/uL RBC (3.80-5.40) m/uL Hgb (11.4-16.0) gm/dL Hct (34.0-46.0) % MCV (80.0-100.0) fL MCH (25.0-35.0) pg MCHC (31.0-37.0) g/dL RDW (11.5-15.5) % Plt Count (150-450) k/uL MPV Neutrophils % % Lymphocytes % % Monocytes % % Eosinophils % % Basophils % % Neutrophils # (1.3-7.7) k/uL Lymphocytes # (1.0-4.8) k/uL Monocytes # (0-1.0) k/uL Eosinophils # (0-0.7) k/uL Basophils # (0-0.2) k/uL Sodium (137-145) mmol/L Potassium (3.5-5.1) mmol/L Chloride (98-107) mmol/L Carbon Dioxide (22-30) mmol/L Anion Gap mmol/L BUN (7-17) mg/dL Creatinine (0.52-1.04) mg/dL Est GFR (CKD-EPI)AfAm (>60 ml/min/1.73 sqM) Est GFR (CKD-EPI)NonAf (>60 ml/min/1.73 sqM) Glucose (74-99) mg/dL Calcium (8.4-10.2) mg/dL Total Bilirubin (0.2-1.3) mg/dL AST (14-36) U/L ALT (4-34) U/L Alkaline Phosphatase (38-126) U/L Total Protein (6.3-8.2) g/dL Albumin (3.5-5.0) g/dL Amylase (30-110) U/L Lipase (23-300) U/L Urine Color Urine Appearance (Clear) Urine pH (5.0-8.0) Ur Specific [place] (1.001-1.035) Urine Protein (Negative) Urine Glucose (UA) (Negative) Urine Ketones (Negative) Urine Blood (Negative) Urine Nitrite (Negative) Urine Bilirubin (Negative) Urine Urobilinogen (<2.0) mg/dL Ur Leukocyte Esterase (Negative) Urine RBC (0-5) /hpf Urine WBC (0-5) /hpf Ur Squamous Epith Cells (0-4) /hpf Urine Bacteria (None) /hpf Urine Mucus (None) /hpf Urine HCG, Qual Not Detected (Not Detectd) Disposition Clinical Impression: Flank pain Disposition: HOME SELF-CARE Condition: Good Additional Instructions: Please return to the Emergency Department if symptoms worsen or any other concerns. Is patient prescribed a controlled substance at d/c from ED?: No Referrals: Anabell Lynne MD [Primary Care Provider] - 1-2 days Time of Disposition: 13:31
[2023-05-01 12:19] LABS: Basophils % (A) 0 %; Eosinophils # (A) 0.2 k/uL (0-0.7); Eosinophils % (A) 2 %; HCT 44.2 % (34.0-46.0); HGB 15.2 gm/dL (11.4-16.0); Lymphocytes % (A) 29 %; MCH 29.8 pg (25.0-35.0); MCHC 34.4 g/dL (31.0-37.0); MCV 86.6 fL (80.0-100.0); Mean Platelet Volume 7.4; Monocytes # (A) 0.4 k/uL (0-1.0); Monocytes % (A) 5 %; Neutrophils # (A) 4.4 k/uL (1.3-7.7); Neutrophils % (A) 61 %; Platelet Count 217 k/uL (150-450); RBC 5.11 m/uL (3.80-5.40); RDW 12.9 % (11.5-15.5); WBC 7.1 k/uL (3.8-10.6)
[2023-05-01 12:25] LABS: ALT 32 U/L (4-34); AST 25 U/L (14-36); African American GFR (CKD) >90 (>60 ml/min/1.73 sqM); Albumin 4.5 g/dL (3.5-5.0); Alkaline Phosphatase 76 U/L (38-126); Amylase 64 U/L (30-110); Anion Gap 15 mmol/L; Blood Urea Nitrogen 12 mg/dL (7-17); Calcium 9.2 mg/dL (8.4-10.2); Carbon Dioxide 20 mmol/L (22-30); Chloride 103 mmol/L (98-107); Glucose 88 mg/dL (74-99); Lipase 80 U/L (23-300); Non-African American GFR(CKD) >90 (>60 ml/min/1.73 sqM); Potassium 3.9 mmol/L (3.5-5.1); Sodium 138 mmol/L (137-145); Total Protein 7.6 g/dL (6.3-8.2)
[2023-05-01 12:37] LABS: Appearance,Urine Cloudy (Clear); Bacteria,Urine Rare /hpf; Bilirubin,Urine Negative (Negative); Blood,Urine Large (Negative); Color,Urine Yellow; Glucose,Urine (UA) Negative (Negative); Ketones,Urine Negative (Negative); Leukocyte Esterase,Urine Large (Negative); Mucus,Urine Many /hpf; Nitrite,Urine Negative (Negative); PH, Urine 5.5 (5.0-8.0); Protein,Urine 1+ (Negative); RBC,Urine >182 /hpf (0-5); Specific Gravity,Urine 1.027 (1.001-1.035); Squamous Epithelial Cell,Urine 15 /hpf (0-4); Urobilinogen,Urine <2.0 mg/dL (<2.0); WBC,Urine 14 /hpf (0-5)
--- NOTE | 2023-05-01 12:53 | CT ---
EXAMINATION TYPE: CT abdomen pelvis wo con DATE OF EXAM: 05/01/2023 COMPARISON: HISTORY: right flank pain CT DLP: 467.4 mGycm Automated exposure control for dose reduction was used. TECHNIQUE: Helical acquisition of images was performed from the lung bases through the pelvis. FINDINGS: LUNG BASES: No significant abnormality is appreciated.Small pericardial effusion. LIVER/GB: No significant abnormality is appreciated. PANCREAS: No significant abnormality is seen. SPLEEN: No significant abnormality is seen. ADRENALS: No significant abnormality is seen. KIDNEYS: There is a 6 mm right renal pelvic calcification with minimal pelvocaliectasis but no overt hydronephrosis. FREE AIR: No free air is visualized URINARY BLADDER: No significant abnormality is seen. ADENOPATHY: None visualized. OSSEOUS STRUCTURES: Degenerative disc disease L-1-2 right paracentral large disc herniation resultin g in significant canal stenosis and right-sided foraminal protrusion. BOWEL: No evidence of obstruction. No significant changes of diverticulosis. Appendix is not seen co mpatible with patient's history of prior appendectomy. Small hiatal hernia. OTHER: Aorta normal caliber. Uterus is enlarged and lobulated. Suspect uterine fibroids. Left ovary i s prominent recommend follow-up pelvic ultrasound. No free fluid or free air. Small fat-containing um bilical hernia. IMPRESSION: 1. There is a 6 mm right renal pelvic calcification with no overt hydronephrosis. 2. Lobulated uterus with prominent left ovary. Recommend ultrasound to assess for uterine fibroid.
[2023-05-01] MEDS ORDERED: IBUPROFEN 600 MG STARTER PACK 4 TAB BTL PO STA (13:32)
[2023-05-01] MEDS ORDERED: ONDANSETRON 4 MG ODT STARTER PACK 2 TAB BTL PO STA (13:32)
[2023-05-01 13:46] VITALS: BP 108/75; PULSE 79; RESP 18
== END 2023-05-01 13:50 | disposition home or self-care (01) ==
LOC: EC 11:01
DX: R10.31 Right lower quadrant pain (principal); I48.91 Unspecified atrial fibrillation; F12.90 Cannabis use, unspecified, uncomplicated; Z90.49 Acquired absence of other specified parts of digestive tract; Z88.0 Allergy status to penicillin
CPT/HCPCS: 36415; 80053; 82150; 83690; 85025; 81001; 81025; 74176; 96374; 96375; 96361; 99284; J2405; J1885; S0119

== ENCOUNTER 2023-05-14 21:34 | Observation (INO) | payer BC ==
--- NOTE | 2023-05-14 21:59 | ED ---
Abdominal Pain HPI - General Source: RN notes reviewed <Meredith Bowden - Last Filed: 05/14/23 21:57> <Steve Trivedi - Last Filed: 05/15/23 01:37> - General Stated Complaint: Abd Pain Time Seen by Provider: 05/14/23 21:57 - History of Present Illness Initial Comments: Patient is a 38-year-old female who presents the emergency department for abdominal pain. Patient was recently diagnosed with a kidney stone never followed up with urology. She has increased right-sided pain with nausea v omiting and fever (Meredith Bowden) She is a 38-year-old female presents to ED with a chief complaint of abdominal pain. No eye patient myself in the ED on 05/01/23. At that time, likely had passed the stone. Today, patient states that she has had increasing right sided flank pain with associated nausea. No fever or chills. Associated dysuria. Denies chest pain or shortness of breath. Patient took 800 mg Ibuprofen prior to arrival with minimal relief of pain. No other complaints. (Steve Trivedi) - Related Data Previous Rx's Medication Instructions Recorded Albuterol Sulfate [Proair Hfa] 1 - 2 puff INHALATION Q4HR PRN 04/09/22 #8.5 gm Azithromycin [Zithromax Z Pack] 0 tab PO DIRECTED #6 tab 04/09/22 predniSONE [Deltasone] 20 mg PO DAILY 5 Days #10 tab 08/01/22 Allergies Allergy/AdvReac Type Severity Reaction Status Date / Time amoxicillin Allergy Unknown Verified 05/01/23 11:06 Childhood Penicillins Allergy Unknown Verified 05/01/23 11:06 Childhood Review of Systems ROS Other: All systems not noted in ROS Statement are negative. <Meredith Bowden - Last Filed: 05/14/23 21:57> ROS Other: All systems not noted in ROS Statement are negative. <Steve Trivedi - Last Filed: 05/15/23 01:37> ROS Statement: Those systems with pertinent positive or pertinent negative responses have been documented in the HPI. Past Medical History Past Medical History: Atrial Fibrillation History of Any Multi-Drug Resistant Organisms: None Reported Past Surgical History: Appendectomy, Tubal Ligation Additional Past Surgical History / Comment(s): TUBES IN EARS CHILD Past Psychological History: No Psychological Hx Reported Smoking Status: Never smoker Past Alcohol Use History: Occasional Past Drug Use History: Marijuana <Meredith Bowden - Last Filed: 05/14/23 21:57> General Exam <Meredith Bowden - Last Filed: 05/14/23 21:57> General appearance: alert, in distress Eye exam: Present: normal appearance Respiratory exam: Present: normal lung sounds bilaterally Cardiovascular Exam: Present: regular rate, normal rhythm GI/Abdominal exam: Present: soft (Abdominal tenderness palpation. Right flank tenderness to percussion.) Neurological exam: Present: alert, oriented X3 Skin exam: Present: warm, dry <Steve Trivedi - Last Filed: 05/15/23 01:37> - General Exam Comments Initial Comments: Visual Physical Exam Vital signs reviewed General: Well-appearing, nontoxic, no acute distress. Head: Normocephalic, atraumatic Eyes: PERRLA, EOMI ENT: Airway patent Chest: Nonlabored breathing Skin: No visual rash, normal skin tone Neuro: Alert and oriented 3 Musculoskeletal: No gross abnormalities (Meredith Bowden) Course Vital Signs 05/14/23 05/14/23 21:56 23:58 Temperature 98.8 F Pulse Rate 98 79 Respiratory 18 16 Rate Blood Pressure 119/84 135/89 O2 Sat by Pulse 98 97 Oximetry Medical Decision Making <Meredith Bowden - Last Filed: 05/14/23 21:57> - Lab Data Result diagrams: 05/14/23 23:12 05/14/23 23:12 <Steve Trivedi - Last Filed: 05/15/23 01:37> - Medical Decision Making I performed the QuickNote portion of this chart - Meredith Bowden PA-C (Meredith Bowden) Was pt. sent in by a medical professional or institution (DARIUS Stoll, MATH COACH, urgent care, hospital, or [facility]...) When possible be specific @ -No Did you speak to anyone other than the patient for history (EMS, parent, family, police, friend...)? What history was obtained from this source @ -No Did you review nursing and triage notes (agree or disagree)? Why? @ -I reviewed and agree with nursing and triage notes Were old charts reviewed (outside hosp., previous admission, EMS record, old EKG, old radiological studies, urgent care reports/EKG's, [facility] records)? Report findings @ -No old charts were reviewed Differential Diagnosis (chest pain, altered mental status, abdominal pain women, abdominal pain men, vaginal bleeding, weakness, fever, dyspnea, syncope, headache, dizziness, GI bleed, back pain, seizure, CVA, palpatations, mental health, musculoskeletal)? @ -Differential Abdominal Pain Women: Appendicitis, Cholecystitis, diverticulosis, ischemic bowel, pancreatitis, hepatitis, UTI, gastroenteritis, AAA, incarcerated hernia, bowel obstruction, constipation, inflammatory bowel, hepatitis, peptic ulcer disease, splenic infarction, perforated viscus, vulvitis, ovarian torsion, PID, kidney stone, placenta abruption, this is not meant to be an all-inclusive list EKG interpreted by me (3pts min.). @ -None X-rays interpreted by me (1pt min.). @ -None done CT interpreted by me (1pt min.). @ -CT abdomen and pelvis interpreted by me showing obstructive stone at right UPJ. U/S interpreted by me (1pt. min.). @ -None done What testing was considered but not performed or refused? (CT, X-rays, U/S, labs)? Why? @ -None What meds were considered but not given or refused? Why? @ -None Did you discuss the management of the patient with other professionals (professionals i.e. , PA, MATH COACH, lab, RT, psych nurse, child welfare social worker, safety and health manager, teacher, security officers and guards, spring encaser)? Give summary @ -No Was smoking cessation discussed for >3mins.? @ -No Was critical care preformed (if so, how long)? @ -No Were there social determinants of health that impacted care today? How? (Homelessness, low income, unemployed, alcoholism, drug addiction, transportation, low edu. Level, literacy, decrease access to med. care, longterm, rehab)? @ -No Was there de-escalation of care discussed even if they declined (Discuss DNR or withdrawal of care, Hospice)? DNR status @ -No What co-morbidities impacted this encounter? (DM, HTN, Smoking, COPD, CAD, Canc er, CVA, ARF, Chemo, Hep., AIDS, mental health diagnosis, sleep apnea, morbid obesity)? @ -None Was patient admitted / discharged? Hospital course, mention meds given and route, prescriptions, significant lab abnormalities, going to OR and other pertinent info. @ -Admission 38-year-old female presents to the ED with chief complaint of flank pain for the last 2 weeks with a significantly worsening in severity over the last 2 days. Studies significant for an elevated white blood cell count 12.2 . Urine showing leukocyte esterace, greater than 182 red blood cells, 55 WBCs., Contaminated with [address] of the abdomen and pelvis did show a 6 mm stone at right UPJ. Patient had 100 mg of ibuprofen prior to arrival. Was given 1 g of Tylenol and 4 mg of morphine. Despite this, still reporting significant pain. Therefore, patient will be admitted to observation for pain control. Undiagnosed new problem with uncertain prognosis? @ -No Drug Therapy requiring intensive monitoring for toxicity (Heparin, Nitro, Insulin, Cardizem)? @ -No Were any procedures done? @ -No Diagnosis/symptom? @ -Obstructive stone, right UPJ Acute, or Chronic, or Acute on Chronic? @ -Acute Uncomplicated (without systemic symptoms) or Complicated (systemic symptoms)? @ -Uncomplicated Side effects of treatment? @ -No Exacerbation, Progression, or Severe Exacerbation? @ -No Poses a threat to life or bodily function? How? (Chest pain, USA, [place], pneumonia, PE, COPD, DKA, ARF, appy, cholecystitis, CVA, Diverticulitis, Homicidal, Suicidal, threat to staff... and all critical care pts) @ -No (Steve Trivedi) - Lab Data Lab Results 05/14/23 05/14/23 05/14/23 Range/Units 23:12 23:12 23:12 WBC 12.2 H (3.8-10.6) k/uL RBC 5.03 (3.80-5.40) m/uL Hgb 15.2 (11.4-16.0) gm/dL Hct 43.7 (34.0-46.0) % MCV 86.8 (80.0-100.0) fL MCH 30.2 (25.0-35.0) pg MCHC 34.8 (31.0-37.0) g/dL RDW 12.3 (11.5-15.5) % Plt Count 231 (150-450) k/uL MPV 7.2 Neutrophils % 81 % Lymphocytes % 14 % Monocytes % 3 % Eosinophils % 1 % Basophils % 0 % Neutrophils # 9.9 H (1.3-7.7) k/uL Lymphocytes # 1.7 (1.0-4.8) k/uL Monocytes # 0.4 (0-1.0) k/uL Eosinophils # 0.1 (0-0.7) k/uL Basophils # 0.0 (0-0.2) k/uL Sodium 138 (137-145) mmol/L Potassium 4.1 (3.5-5.1) mmol/L Chloride 104 (98-107) mmol/L Carbon Dioxide 24 (22-30) mmol/L Anion Gap 10 mmol/L BUN 13 (7-17) mg/dL Creatinine 0.58 (0.52-1.04) mg/dL Est GFR (CKD-EPI)AfAm >90 (>60 ml/min/1.73 sqM) Est GFR (CKD-EPI)NonAf >90 (>60 ml/min/1.73 sqM) Glucose 121 H (74-99) mg/dL Plasma Lactic Acid Jeff 0.8 (0.7-2.0) mmol/L Calcium 10.0 (8.4-10.2) mg/dL Total Bilirubin 0.5 (0.2-1.3) mg/dL AST 29 (14-36) U/L ALT 39 H (4-34) U/L Alkaline Phosphatase 83 (38-126) U/L Total Protein 7.6 (6.3-8.2) g/dL Albumin 4.4 (3.5-5.0) g/dL Lipase 90 (23-300) U/L Urine Color Urine Appearance (Clear) Urine pH (5.0-8.0) Ur Specific [place] (1.001-1.035) Urine Protein (Negative) Urine Glucose (UA) (Negative) Urine Ketones (Negative) Urine Blood (Negative) Urine Nitrite (Negative) Urine Bilirubin (Negative) Urine Urobilinogen (<2.0) mg/dL Ur Leukocyte Esterase (Negative) Urine RBC (0-5) /hpf Urine WBC (0-5) /hpf Ur Squamous Epith Cells (0-4) /hpf Calcium Oxalate Crystal (None) /hpf Urine Bacteria (None) /hpf Hyaline Casts (0-2) /lpf Urine Mucus (None) /hpf 05/15/23 Range/Units 00:06 WBC (3.8-10.6) k/uL RBC (3.80-5.40) m/uL Hgb (11.4-16.0) gm/dL Hct (34.0-46.0) % MCV (80.0-100.0) fL MCH (25.0-35.0) pg MCHC (31.0-37.0) g/dL RDW (11.5-15.5) % Plt Count (150-450) k/uL MPV Neutrophils % % Lymphocytes % % Monocytes % % Eosinophils % % Basophils % % Neutrophils # (1.3-7.7) k/uL Lymphocytes # (1.0-4.8) k/uL Monocytes # (0-1.0) k/uL Eosinophils # (0-0.7) k/uL Basophils # (0-0.2) k/uL Sodium (137-145) mmol/L Potassium (3.5-5.1) mmol/L Chloride (98-107) mmol/L Carbon Dioxide (22-30) mmol/L Anion Gap mmol/L BUN (7-17) mg/dL Creatinine (0.52-1.04) mg/dL Est GFR (CKD-EPI)AfAm (>60 ml/min/1.73 sqM) Est GFR (CKD-EPI)NonAf (>60 ml/min/1.73 sqM) Glucose (74-99) mg/dL Plasma Lactic Acid Jeff (0.7-2.0) mmol/L Calcium (8.4-10.2) mg/dL Total Bilirubin (0.2-1.3) mg/dL AST (14-36) U/L ALT (4-34) U/L Alkaline Phosphatase (38-126) U/L Total Protein (6.3-8.2) g/dL Albumin (3.5-5.0) g/dL Lipase (23-300) U/L Urine Color Yellow Urine Appearance Cloudy H (Clear) Urine pH 6.0 (5.0-8.0) Ur Specific [place] 1.025 (1.001-1.035) Urine Protein 2+ H (Negative) Urine Glucose (UA) Negative (Negative) Urine Ketones Negative (Negative) Urine Blood Large H (Negative) Urine Nitrite Negative (Negative) Urine Bilirubin Negative (Negative) Urine Urobilinogen 0.2 (<2.0) mg/dL Ur Leukocyte Esterase Moderate H (Negative) Urine RBC >182 H (0-5) /hpf Urine WBC 55 H (0-5) /hpf Ur Squamous Epith Cells 7 H (0-4) /hpf Calcium Oxalate Crystal Few H (None) /hpf Urine Bacteria Few H (None) /hpf Hyaline Casts 26 H (0-2) /lpf Urine Mucus Few H (None) /hpf Disposition <Meredith Bowden - Last Filed: 05/14/23 21:57> Time of Disposition: 01:37 <Steve Trivedi - Last Filed: 05/15/23 01:37> Clinical Impression: Kidney stone Disposition: ADMITTED IP TO THIS HOSP Condition: Good Referrals: Anabell Lynne MD [Primary Care Provider] - 1-2 days
--- NOTE | 2023-05-14 22:25 | CT ---
EXAM: CT Abdomen and Pelvis Without Intravenous Contrast CLINICAL HISTORY: ITS.REASON CT Reason: right flank pain recent kidney stone dx TECHNIQUE: Axial computed tomography images of the abdomen and pelvis without intravenous contrast. CTDI is 8.2 mGy and DLP is 470.6 mGy-cm. This CT exam was performed using one or more of the following dose reduction techniques: automated exposure control, adjustment of the mA and/or kV according to patient size, and/or use of iterative reconstruction technique. COMPARISON: No relevant prior studies available. FINDINGS: Lung bases: Unremarkable. No mass. No consolidation. ABDOMEN: Liver: Unremarkable. Gallbladder and bile ducts: Unremarkable. No calcified stones. No ductal dilation. Pancreas: Unremarkable. No ductal dilation. Spleen: Unremarkable. No splenomegaly. Adrenals: Unremarkable. No mass. Kidneys and ureters: Obstructing 6 mm RIGHT UPJ stone. Mild fullness of the RIGHT renal collecting system. Stomach and bowel: Unremarkable. No obstruction. No mucosal thickening. PELVIS: Appendix: No findings to suggest acute appendicitis. Bladder: Unremarkable. No stones. Reproductive: Unremarkable as visualized. ABDOMEN and PELVIS: Intraperitoneal space: Unremarkable. No free air. No significant fluid collection. Bones/joints: No acute fracture. No dislocation. Soft tissues: Unremarkable. Vasculature: Unremarkable. No abdominal aortic aneurysm. Lymph nodes: Unremarkable. No enlarged lymph nodes. IMPRESSION: Obstructing 6 mm RIGHT UPJ stone. Mild fullness of the RIGHT renal collecting system.
[2023-05-14] MEDS ORDERED: ACETAMINOPHEN TAB 500 MG TAB PO STA (23:16)
[2023-05-14] MEDS ORDERED: SODIUM CHLORIDE 0.9% 2,000 ML IV STA (23:16)
[2023-05-14] MEDS ORDERED: ONDANSETRON 4 MG/2 ML VIAL IVP STA (23:16)
[2023-05-14 23:17] LABS: Basophils % (A) 0 %; Eosinophils # (A) 0.1 k/uL (0-0.7); Eosinophils % (A) 1 %; HCT 43.7 % (34.0-46.0); HGB 15.2 gm/dL (11.4-16.0); Lymphocytes # (A) 1.7 k/uL (1.0-4.8); Lymphocytes % (A) 14 %; MCH 30.2 pg (25.0-35.0); MCHC 34.8 g/dL (31.0-37.0); MCV 86.8 fL (80.0-100.0); Mean Platelet Volume 7.2; Monocytes # (A) 0.4 k/uL (0-1.0); Monocytes % (A) 3 %; Neutrophils # (A) 9.9 k/uL (1.3-7.7); Neutrophils % (A) 81 %; Platelet Count 231 k/uL (150-450); RBC 5.03 m/uL (3.80-5.40); RDW 12.3 % (11.5-15.5); WBC 12.2 k/uL (3.8-10.6)
[2023-05-14 23:29] LABS: ALT 39 U/L (4-34); AST 29 U/L (14-36); African American GFR (CKD) >90 (>60 ml/min/1.73 sqM); Albumin 4.4 g/dL (3.5-5.0); Alkaline Phosphatase 83 U/L (38-126); Anion Gap 10 mmol/L; Blood Urea Nitrogen 13 mg/dL (7-17); Carbon Dioxide 24 mmol/L (22-30); Chloride 104 mmol/L (98-107); Glucose 121 mg/dL (74-99); Lipase 90 U/L (23-300); Non-African American GFR(CKD) >90 (>60 ml/min/1.73 sqM); Potassium 4.1 mmol/L (3.5-5.1); Sodium 138 mmol/L (137-145); Total Bilirubin 0.5 mg/dL (0.2-1.3); Total Protein 7.6 g/dL (6.3-8.2)
[2023-05-14] MEDS ORDERED: MORPHINE SULFATE 4 MG/ML SYRINGE IVP STA (23:47)
[2023-05-15 00:30] LABS: Bacteria,Urine Few /hpf; Calcium Oxalate Crystals,Urine Few /hpf; Hyaline Casts,Urine 26 /lpf (0-2); Mucus,Urine Few /hpf; RBC,Urine >182 /hpf (0-5); Squamous Epithelial Cell,Urine 7 /hpf (0-4); WBC,Urine 55 /hpf (0-5)
[2023-05-15 00:35] LABS: Appearance,Urine Cloudy (Clear); Bilirubin,Urine Negative (Negative); Blood,Urine Large (Negative); Color,Urine Yellow; Glucose,Urine (UA) Negative (Negative); Ketones,Urine Negative (Negative); Leukocyte Esterase,Urine Moderate (Negative); Nitrite,Urine Negative (Negative); Protein,Urine 2+ (Negative); Specific Gravity,Urine 1.025 (1.001-1.035); Urobilinogen,Urine 0.2 mg/dL (<2.0)
[2023-05-15] MEDS ORDERED: cefTRIAXone IN SWFI 1,000 MG/10 ML SYRINGE IVP STA (00:53)
[2023-05-15] MEDS ORDERED: diphenhydrAMINE 50 MG/ML 1 ML VIAL IVP PRN (00:55)
[2023-05-15] MEDS ORDERED: NALOXONE 0.4 MG/ML 1 ML VIAL IV PRN (01:37)
[2023-05-15] MEDS ORDERED: ONDANSETRON 4 MG/2 ML VIAL IVP PRN (01:37)
[2023-05-15] MEDS ORDERED: HYDROmorphone 1 MG/ML 1 ML SYRINGE IVP PRN (01:37)
[2023-05-15] MEDS ORDERED: HYDROmorphone 0.5 MG/0.5 ML SYRINGE IVP PRN (01:37)
[2023-05-15] MEDS: SODIUM CHLORIDE 0.9% 1,000 ML IV SCH ×2 (02:49→16:17)
--- NOTE | 2023-05-15 08:52 | P.GSHP ---
History of Present Illness H&P Date: 05/15/23 This is a 38yo female admitted to the hospital with a 6 mm right UPJ stone. This is her second presentation to the emergency room with intractable pain. He indicates pain associated with nausea and vomiting denies any dysuria or gross hematuria. No fevers or chills. No previous history of kidney stones. No known family history of kidney stones. Underwent a CT that showed evidence of a 6 mm right side right UVJ stone with hydronephrosis. urinalysis is suspicious with a UTI - Constitutional Constitutional: Denies chills, Denies fever - EENT Ears, nose, mouth and throat: Denies headache, Denies sore throat - Cardiovascular Cardiovascular: Denies chest pain, Denies shortness of breath - Respiratory Respiratory: Denies cough, Denies 7 - Genitourinary (Female) Genitourinary: Reports flank pain, Denies dysuria - Genitourinary (Male) Genitourinary: Denies dysuria, Denies hematuria Past Medical History Past Medical History: Atrial Fibrillation History of Any Multi-Drug Resistant Organisms: None Reported Past Surgical History: Appendectomy, Tubal Ligation Additional Past Surgical History / Comment(s): TUBES IN EARS CHILD Past Psychological History: No Psychological Hx Reported Smoking Status: Never smoker Past Alcohol Use History: Occasional Past Drug Use History: Marijuana Medications and Allergies Home Medications Medication Instructions Recorded Confirmed Type Cholecalciferol [Vitamin D3 (25 25 mcg PO DAILY 05/15/23 05/15/23 History Mcg = 1000 Iu)] Cyanocobalamin (Vitamin B-12) 1,000 mcg PO DAILY 05/15/23 05/15/23 History [Vitamin B-12] Ibuprofen [Motrin Ib] 800 mg PO Q8H PRN 05/15/23 05/15/23 History L.acidoph,Paracasei, B.lactis 1 cap PO DAILY 05/15/23 05/15/23 History [Probiotic] Magnesium Citrate 125 mg PO DAILY 05/15/23 05/15/23 History Multivitamins, Thera [Multivitamin 1 tab PO DAILY 05/15/23 05/15/23 History (formulary)] Tirzepatide [Mounjaro] 7.5 mg SQ MARCOS 05/15/23 05/15/23 History Allergies Allergy/AdvReac Type Severity Reaction Status Date / Time amoxicillin Allergy Unknown Verified 05/15/23 06:26 Childhood Penicillins Allergy Unknown Verified 05/15/23 06:26 Childhood Surgical - Exam Vital Signs Temp Pulse Resp BP Pulse Ox 98.8 F 98 18 119/84 98 05/14/23 21:56 05/14/23 21:56 05/14/23 21:56 05/14/23 21:56 05/14/23 21:56 - General no distress, moderate pain - Eyes normal ocular movement, no icteric - ENT normal nares, normal mucosa - Respiratory normal expansion, normal respiratory effort - Abdomen Abdomen: soft, non tender, no distended - Psychiatric oriented to time, oriented to person, oriented to place Results - Labs 05/14/23 23:12 05/14/23 23:12 Abnormal Lab Results - Last 24 Hours (Table) 05/14/23 05/14/23 05/15/23 Range/Units 23:12 23:12 00:06 WBC 12.2 H (3.8-10.6) k/uL Neutrophils # 9.9 H (1.3-7.7) k/uL Glucose 121 H (74-99) mg/dL ALT 39 H (4-34) U/L Urine Appearance Cloudy H (Clear) Urine Protein 2+ H (Negative) Urine Blood Large H (Negative) Ur Leukocyte Esterase Moderate H (Negative) Urine RBC >182 H (0-5) /hpf Urine WBC 55 H (0-5) /hpf Ur Squamous Epith Cells 7 H (0-4) /hpf Calcium Oxalate Crystal Few H (None) /hpf Urine Bacteria Few H (None) /hpf Hyaline Casts 26 H (0-2) /lpf Urine Mucus Few H (None) /hpf Diabetes panel 05/14/23 Range/Units 23:12 Sodium 138 (137-145) mmol/L Potassium 4.1 (3.5-5.1) mmol/L Chloride 104 (98-107) mmol/L Carbon Dioxide 24 (22-30) mmol/L BUN 13 (7-17) mg/dL Creatinine 0.58 (0.52-1.04) mg/dL Glucose 121 H (74-99) mg/dL Calcium 10.0 (8.4-10.2) mg/dL AST 29 (14-36) U/L ALT 39 H (4-34) U/L Alkaline Phosphatase 83 (38-126) U/L Total Protein 7.6 (6.3-8.2) g/dL Albumin 4.4 (3.5-5.0) g/dL Calcium panel 05/14/23 Range/Units 23:12 Calcium 10.0 (8.4-10.2) mg/dL Albumin 4.4 (3.5-5.0) g/dL Pituitary panel 05/14/23 Range/Units 23:12 Sodium 138 (137-145) mmol/L Potassium 4.1 (3.5-5.1) mmol/L Chloride 104 (98-107) mmol/L Carbon Dioxide 24 (22-30) mmol/L BUN 13 (7-17) mg/dL Creatinine 0.58 (0.52-1.04) mg/dL Glucose 121 H (74-99) mg/dL Calcium 10.0 (8.4-10.2) mg/dL Adrenal panel 05/14/23 Range/Units 23:12 Sodium 138 (137-145) mmol/L Potassium 4.1 (3.5-5.1) mmol/L Chloride 104 (98-107) mmol/L Carbon Dioxide 24 (22-30) mmol/L BUN 13 (7-17) mg/dL Creatinine 0.58 (0.52-1.04) mg/dL Glucose 121 H (74-99) mg/dL Calcium 10.0 (8.4-10.2) mg/dL Total Bilirubin 0.5 (0.2-1.3) mg/dL AST 29 (14-36) U/L ALT 39 H (4-34) U/L Alkaline Phosphatase 83 (38-126) U/L Total Protein 7.6 (6.3-8.2) g/dL Albumin 4.4 (3.5-5.0) g/dL Assessment and Plan Assessment: 38 yo hx of right sided UPJ stone having intractable pain. discussed given the UTI and the obstructive stones and her symptoms option of right ureteral stent was discussed. Discussed this is not a definitive way to manage the stone and she will eventually require right-sided ureteroscopy. Risks benefits and rationale was discussed in detail -OR for cystoscopy and right stent insertion
[2023-05-15] MEDS ORDERED: LACTATED RINGERS 1,000 ML IV ONE (09:53)
[2023-05-15] MEDS ORDERED: ONDANSETRON 4 MG/2 ML VIAL IVP ONE (10:10)
[2023-05-15] MEDS ORDERED: DEXAMETHASONE SOD PHOSPHATE 4 MG/ML 1 ML VIAL IVP ONE (10:10)
[2023-05-15] MEDS ORDERED: FAMOTIDINE 20 MG/2 ML VIAL IVP ONE (10:38)
[2023-05-15] MEDS ORDERED: HYDROcodone/APAP 5-325MG 1 EACH TAB PO PRN (11:24)
--- NOTE | 2023-05-15 11:30 | P.OP ---
Date of Procedure: 05/15/23 Preoperative Diagnosis: Right ureteral calculus with obstruction, urinary tract infection with sepsis Postoperative Diagnosis: Same Procedure(s) Performed: Cystoscopy, placement of 6 x 24 double-J catheter Surgeon: Adam Zhang Estimated Blood Loss (ml): 0 Pathology: none sent Condition: stable Disposition: PACU Indications for Procedure: Patient is 38. She presents to the emergency room with severe right flank pain elevated white count at 12,000 and infected looking urine. set her up for a stent placement on the right side I will do this for him. Description of Procedure: Patient brought to the operating suite. Given a general anesthetic. Placed lithotomy position with a sterile prep and drape. Cystoscopy Foroblique lens and 21-Salvadorean sheath identifies some inflammation on the trigone consistent with cystitis. The rest the bladder carlson unremarkable. An 035 wires passed up the right ureter into the renal pelvis. The stone is fallen back into the right renal pelvis. Over the wires passed a 6 x 24 double-J catheter that coils in the renal pelvis, right and in the bladder. The bladder is drained the patient is awakened and returned recovery in good condition. She tolerated procedure and will be placed in the hospital postoperatively
--- NOTE | 2023-05-15 11:49 | FL ---
Intraoperative/procedural fluoroscopic services were provided for right stent insertion. Total fluoro scopy time is 15.5 seconds with a total of 1 submitted image to PACS. Total DAP 1.5258 Gycm2. Please see the operative note for further details.
[2023-05-15] MEDS: LEVOFLOXACIN 500 MG TAB PO SCH (16:04)
[2023-05-15] MEDS: ACETAMINOPHEN TAB 325 MG TAB PO PRN (16:16)
[2023-05-16] MEDS: SODIUM CHLORIDE 0.9% 1,000 ML IV SCH (06:44)
[2023-05-16 08:27] VITALS: BP 107/69; PULSE 81; RESP 18; TEMP 98
[2023-05-16] MEDS ORDERED: OXYBUTYNIN 10 MG TAB.ER.24 PO SCH (09:00)
--- NOTE | 2023-05-16 09:07 | P.DS ---
Providers Date of admission: 05/15/23 01:41 Attending physician: Dong Alfaro MD Primary care physician: Anabell Lynne [facility] Course: This is a 38 yo female with history of left-sided ureteral stone and UTI, She was admitted to the hospital due to intractable pain. Underwent a left-sided stent insertion on May 15. Patient did well in the postoperative period. She was discharged home on postop day #1, at time of discharge she was tolerating a diet, ambulating, and pain was controlled. She was discharged home on Bactrim. She will follow up in 2 weeks for a left-sided ureteroscopy with holmium laser Patient Condition at Discharge: Good Plan - Discharge Summary New Discharge Prescriptions: No Action L.acidoph,Paracasei, B.lactis [Probiotic] 1 cap PO DAILY Ibuprofen [Motrin Ib] 800 mg PO Q8H PRN PRN Reason: Fever And/ Or Pain Cholecalciferol [Vitamin D3 (25 Mcg = 1000 Iu)] 25 mcg PO DAILY Magnesium Citrate 125 mg PO DAILY Cyanocobalamin (Vitamin B-12) [Vitamin B-12] 1,000 mcg PO DAILY Tirzepatide [Mounjaro] 7.5 mg SQ MARCOS Multivitamins, Thera [Multivitamin (formulary)] 1 tab PO DAILY Discharge Medication List Cholecalciferol [Vitamin D3 (25 Mcg = 1000 Iu)] 25 mcg PO DAILY 05/15/23 [History] Cyanocobalamin (Vitamin B-12) [Vitamin B-12] 1,000 mcg PO DAILY 05/15/23 [History] Ibuprofen [Motrin Ib] 800 mg PO Q8H PRN 05/15/23 [History] L.acidoph,Paracasei, B.lactis [Probiotic] 1 cap PO DAILY 05/15/23 [History] Magnesium Citrate 125 mg PO DAILY 05/15/23 [History] Multivitamins, Thera [Multivitamin (formulary)] 1 tab PO DAILY 05/15/23 [History] Tirzepatide [Mounjaro] 7.5 mg SQ MARCOS 05/15/23 [History] Follow up Appointment(s)/Referral(s): Anabell Lynne MD [Primary Care Provider] - 1-2 days
[2023-05-16] MEDS: ACETAMINOPHEN TAB 325 MG TAB PO PRN (09:21)
[2023-05-16] MEDS: LEVOFLOXACIN 500 MG TAB PO SCH (13:38)
[2023-05-19] MEDS ORDERED: PATIENT'S OWN (Tirzepatide [Mounjaro] 7.5 MG/0.5 ML Pen.Injctr) SQ SCH (09:00)
== END 2023-05-16 13:40 | disposition home or self-care (01) ==
LOC: EC 21:34 → 6NMEDSUR 05-15 01:41
PROVIDERS: ADMIT Urology; ATTEND Urology
DX: N13.6 Pyonephrosis (principal); A41.9 Sepsis, unspecified organism; I48.91 Unspecified atrial fibrillation; Z79.52 Long term (current) use of systemic steroids; Z88.0 Allergy status to penicillin
CPT/HCPCS: 96376; 96361 ×4; 96375 ×2; 96374; 99285; 36415; 81025 ×2; 80053; 83605; 83690; 85025; 81001; 87086; 87077; 87186; 74176; 52332; G0378 ×2; C2625; C1769; J2270; J1100; J2405 ×2; J0696; J3490; J1170

== ENCOUNTER → 2023-05-27 | Outpatient (CLI) | payer BC ==
[2023-05-27 13:04] LABS: Appearance,Urine Cloudy (Clear); Bacteria,Urine Few /hpf; Bilirubin,Urine Negative (Negative); Blood,Urine Large (Negative); Color,Urine Light Red; Glucose,Urine (UA) Negative (Negative); Ketones,Urine Negative (Negative); Leukocyte Esterase,Urine Moderate (Negative); Mucus,Urine Many /hpf; Nitrite,Urine Negative (Negative); PH, Urine 5.5 (5.0-8.0); Protein,Urine 2+ (Negative); RBC,Urine >182 /hpf (0-5); Specific Gravity,Urine 1.017 (1.001-1.035); Squamous Epithelial Cell,Urine 6 /hpf (0-4); Urobilinogen,Urine <2.0 mg/dL (<2.0); WBC,Urine 43 /hpf (0-5)
== END | disposition home or self-care (01) ==
LOC: LABPAT 10:40
PROVIDERS: ATTEND Urology
DX: Z01.812 Encounter for preprocedural laboratory examination (principal); N20.1 Calculus of ureter; R31.29 Other microscopic hematuria
CPT/HCPCS: 81001; 87086

== ENCOUNTER 2023-05-28 08:29 | Day surgery (SDC) | payer BC ==
--- NOTE | 2023-05-28 07:49 | P.HPIHPCON ---
History of Present Illness H&P Date: 05/28/23 This is a 38-year-old female with history of a 6 mm right-sided proximal stone, status post stent insertion on May 15. She presents today for right-sided ureteroscopy with holmium laser. Aware of the risk which includes but not limited to bleeding, infection, injury to the ureter. Risks of anesthesia was also discussed. She understood all the risk and agreed to proceed Consent for Procedure: I have explained the operation/procedure to the patient, including the risks, benefits, side effects, alternative therapies (including not receiving the proposed treatment or service), the likelihood of the patient achieving his/her goals, and potential recuperation problems for the procedure/sedation/analgesia, as well as any blood products, if indicated. I also explained to the patient the risks, benefits and side effects of the alternatives, as well as the risks related to not receiving the proposed procedure, care, treatment, or services. Past Medical History Past Medical History: Atrial Fibrillation, Renal Disease Additional Past Medical History / Comment(s): kidney stones, occasionally elevated b/p History of Any Multi-Drug Resistant Organisms: None Reported Past Surgical History: Appendectomy, Tubal Ligation, Uterine Ablation Additional Past Surgical History / Comment(s): TUBES IN EARS CHILD, ureteral stent insertion. Additional Past Anesthesia/Blood Transfusion Reaction / Comment(s): Muscle soreness for few days after anesthesia. Smoking Status: Never smoker - Past Family History Mother Family Medical History: CVA/TIA, Diabetes Mellitus, Hypertension, Myocardial Infarction ([place]), Renal Disease Father Family Medical History: Respiratory Disorder Additional Family Medical History / Comment(s): "form of lung disease" Medications and Allergies Home Medications Medication Instructions Recorded Confirmed Type Cholecalciferol [Vitamin D3 (25 25 mcg PO QAM 05/15/23 05/27/23 History Mcg = 1000 Iu)] Cyanocobalamin (Vitamin B-12) 1,000 mcg PO QAM 05/15/23 05/27/23 History [Vitamin B-12] Ibuprofen [Motrin Ib] 800 mg PO Q8H PRN 05/15/23 05/27/23 History L.acidoph,Paracasei, B.lactis 1 cap PO QAM 05/15/23 05/27/23 History [Probiotic] Magnesium Citrate 125 mg PO DAILY 05/15/23 05/27/23 History Multivitamins, Thera [Multivitamin 1 tab PO QAM 05/15/23 05/27/23 History (formulary)] Tirzepatide [Mounjaro] 7.5 mg SQ MARCOS 05/15/23 05/27/23 History Ketorolac [Toradol] 10 mg PO Q6HR PRN #15 tab 05/16/23 05/27/23 Rx Sulfamethox-Tmp 800-160Mg [Bactrim 1 tab PO Q12HR #14 tab 05/16/23 05/27/23 Rx DS 800-160 mg] Allergies Allergy/AdvReac Type Severity Reaction Status Date / Time amoxicillin Allergy Unknown Verified 05/27/23 11:58 Childhood Penicillins Allergy Unknown Verified 05/27/23 11:58 Childhood Surgical - Exam - General no distress, no pain - Eyes normal ocular movement, no pale - ENT normal nares, normal mucosa - Respiratory normal expansion, normal respiratory effort Assessment and Plan Assessment: OR for right-sided ureteroscopy, with holmium laser lithotripsy, stone basketing and stent removal
[~2023-05-28 08:29] MED LIST changes: +CIPROFLOXACIN/DEXTROSE PMX 400 MG in DEXTROSE/WATER 1 200ML.BAG IVPB PRN; +DEXAMETHASONE SOD PHOSPHATE 4 MG/ML 1 ML VIAL IV ONE; +LACTATED RINGERS 1,000 ML IV SCH; +LIDOCAINE 1% (10MG/ML) FOR IV START INTRADERMA PRN; +MIDAZOLAM 2 MG/2 ML VIAL IV PRN; +ONDANSETRON 4 MG/2 ML VIAL IVP ONE; -Pre Op ABX Message 1 EACH MISC MISCELLANE ONE
--- NOTE | 2023-05-28 09:25 | XR ---
EXAMINATION TYPE: XR KUB DATE OF EXAM: 05/28/2023 COMPARISON: NONE HISTORY: Right ureteral stent TECHNIQUE: One view abdominal series FINDINGS: The osseous structures are intact. The bowel gas pattern is nonspecific. There is a right-sided uret eral stent. 8 mm calcification overlying the 12th rib likely related to renal calculus. Assessment of the renal outlines are limited about. Distal stent appears to be at the level of the distal ureter o r UVJ. Calcification pelvis on the left likely vascular. IMPRESSION: 1. Suspect right-sided 8 mm renal calculus.
[2023-05-28 09:43] VITALS: RESP 16
[2023-05-28] MEDS ORDERED: LIDOCAINE 1% INJ 10MG/ML (20 ML MDV) ONE (11:17)
[2023-05-28] MEDS ORDERED: SUCCINYLCHOLINE CHLORIDE 200 MG/10 ML VIAL IV ONE (11:17)
[2023-05-28] MEDS ORDERED: PROPOFOL 10 MG/ML 20 ML VIAL IV ONE (11:17)
[2023-05-28] MEDS ORDERED: MIDAZOLAM 2 MG/2 ML VIAL ONE (11:17)
[2023-05-28] MEDS ORDERED: fentaNYL (PF) 50 MCG/ML 2 ML AMP ONE (11:17)
[2023-05-28] MEDS ORDERED: LACTATED RINGERS 1,000 ML IV ONE (12:00)
--- NOTE | 2023-05-28 12:15 | P.OP ---
Date of Procedure: 05/28/23 Preoperative Diagnosis: Right renal stone Postoperative Diagnosis: Same Procedure(s) Performed: Right ureteroscopy, holmium laser lithotripsy, stone basketing and stent removal Implants: none Anesthesia: MARSHALA Surgeon: Dong Alfaro Estimated Blood Loss (ml): 5 Pathology: other (right sided renal stone) Condition: stable Disposition: PACU Indications for Procedure: This is a 38-year-old female with history of a 6 mm right-sided proximal stone, status post stent insertion on May 15. She presents today for right-sided ureteroscopy with holmium laser. Aware of the risk which includes but not limited to bleeding, infection, injury to the ureter. Risks of anesthesia was also discussed. She understood all the risk and agreed to proceed Operative Findings: Right-sided renal pelvis stone Description of Procedure: Patient brought to the operating room, general anesthesia was induced. She was prepped and draped in sterile fashion and placed in dorsal lithotomy position. Cystoscopy fitted 21-[place] sheath was inserted per urethra, cystoscopy was performed which showed no abnormality within the bladder. Of note patient stent migrated into the distal ureter. This time a semirigid ureteroscope was inserted per urethra and advanced up the right ureteral orifice, using the stone basket the stent was grasped and removed intact. At this time the semirigid ureteroscope was advanced per urethra and up the right ureteral orifice, the scope was advanced all the way up to the UPJ which showed no stones along the course of the ureter, pullback ureteroscopy was performed which showed no injury to the ureter or any ureteral stones, as ureteroscope was withdrawn and a sensor wire was advanced through. Next an 1113 [place] access sheath was passed over the wire and into the proximal ureter. Next flexibile ureteroscope was inserted through the access sheath, renoscopy was performed which showed a stone in the renal pelvis. Using the holmium laser the stone was fragmented, stone fragments were removed using the stone basket. Repeat renoscopy showed no sizable stones or injury to the kidney. Pullback ureteroscopy was performed whixh showed no injury to the ureter or any ureteral stones. The bladder was emptied at the end of the case. Patient tolerated the procedure well was taken to recovery stable condition
[2023-05-28] MEDS: HYDROmorphone 0.5 MG/0.5 ML SYRINGE IVP PRN ×3 (12:30→12:50)
[2023-05-28] MEDS ORDERED: KETOROLAC 15 MG/ML 1 ML VIAL IVP ONE (12:41)
[2023-05-28 12:46] VITALS: TEMP 97.5
--- NOTE | 2023-05-28 12:52 | FL ---
EXAMINATION TYPE: FL guidance operating room DATE OF EXAM: 05/28/2023 HISTORY: Fluoroscopy time Total dose area product (DAP) in uGy*m?, mGy*cm? (or similar): 0.52317 IMPRESSION: 1. Fluoroscopy time.
[2023-05-28 14:29] VITALS: BP 120/74; PULSE 87
== END 2023-05-28 14:46 | disposition home or self-care (01) ==
LOC: OR 08:29
PROVIDERS: ATTEND Urology
DX: N20.0 Calculus of kidney (principal); I48.91 Unspecified atrial fibrillation; N28.9 Disorder of kidney and ureter, unspecified; Z98.51 Tubal ligation status; Z98.890 Other specified postprocedural states; Z83.3 Family history of diabetes mellitus; Z84.89 Family history of other specified conditions; Z82.49 Family history of ischemic heart disease and other diseases of the circulatory system; Z79.1 Long term (current) use of non-steroidal anti-inflammatories (NSAID); Z79.52 Long term (current) use of systemic steroids; Z79.2 Long term (current) use of antibiotics; Z79.85 Long-term (current) use of injectable non-insulin antidiabetic drugs; Z79.899 Other long term (current) drug therapy; Z88.0 Allergy status to penicillin
CPT/HCPCS: 52353; 81025; 82365; 74018; C1769; J2250; J0330; J1100; J2405; J2001; J3010; J0744; J1885; J2704; J1170

== ENCOUNTER 2023-05-28 17:56 | Observation (INO) | payer BC ==
--- NOTE | 2023-05-28 18:06 | ED ---
Chest Pain HPI - General Source: patient, RN notes reviewed Mode of arrival: ambulatory Limitations: no limitations <Daniel Lopez - Last Filed: 05/28/23 18:05> - History of Present Illness MD Complaint: chest pain, other -: days(s) Onset: during rest (Palpitations), during exertion Pain Location: left chest Severity: mild Severity scale (1-10): 3 Quality: tightness (Palpitations) Consistency: constant Improves With: nothing Worsens With: nothing Anginal Symptoms: dyspnea Other Symptoms: palpitations Treatments Prior to Arrival: none <Ever Mcdonald - Last Filed: 06/02/23 20:11> - General Chief Complaint: Chest Pain Stated Complaint: chest pain-post op Time Seen by Provider: 05/28/23 18:05 - History of Present Illness Initial Comments: 38-year-old female presents emergency Department with chief complaint of Chest pain. Patient states that she had kidney stones removed by Dr. Alfaro today. Patient states after the procedure she started developing chest pain states it's centralized chest pain. She does have history of A. fib states that she only had 1 bouts of this. She is not taking any anticoagulants. Denies any fevers chills patient denies went of headache she does have slight nausea (Daniel Lopez) This is a 38-year-old female to the emergency department today for evaluation of chest pain or palpitations today. Patient states she's had this issue for a few days now. She also had a recent procedure and had the symptoms throughout the day during the procedure before and after. Patient is also having pain abdominal pain with recent stent removal secondary to kidney stones. Patient does have history of atrial fibrillation takes no other medications. No fevers or other complaints (Ever Mcdonald) - Related Data Home Medications Medication Instructions Recorded Confirmed Cholecalciferol [Vitamin D3 (25 25 mcg PO QAM 05/15/23 05/28/23 Mcg = 1000 Iu)] Cyanocobalamin (Vitamin B-12) 1,000 mcg PO QAM 05/15/23 05/28/23 [Vitamin B-12] L.acidoph,Paracabrahani, B.lactis 1 cap PO QAM 05/15/23 05/28/23 [Probiotic] Magnesium Citrate 125 mg PO DAILY 05/15/23 05/28/23 Multivitamins, Thera [Multivitamin 1 tab PO QAM 05/15/23 05/28/23 (formulary)] Tirzepatide [Mounjaro] 7.5 mg SQ MARCOS 05/15/23 05/28/23 Previous Rx's Medication Instructions Recorded Ketorolac [Toradol] 10 mg PO Q6HR PRN #15 tab 05/28/23 Sulfamethox-Tmp 800-160Mg [Bactrim 1 tab PO Q12HR #6 tab 05/28/23 DS 800-160 mg] Allergies Allergy/AdvReac Type Severity Reaction Status Date / Time amoxicillin Allergy Unknown Verified 05/28/23 22:17 Childhood Penicillins Allergy Unknown Verified 05/28/23 22:17 Childhood Review of Systems ROS Other: All systems not noted in ROS Statement are negative. <Daniel Lopez - Last Filed: 05/28/23 18:05> ROS Other: All systems not noted in ROS Statement are negative. <Ever Mcdonald - Last Filed: 06/02/23 20:11> ROS Statement: Those systems with pertinent positive or pertinent negative responses have been documented in the HPI. Past Medical History Past Medical History: Atrial Fibrillation History of Any Multi-Drug Resistant Organisms: None Reported Past Surgical History: Appendectomy, Tubal Ligation Additional Past Surgical History / Comment(s): TUBES IN EARS CHILD Past Psychological History: No Psychological Hx Reported Smoking Status: Never smoker Past Alcohol Use History: Occasional Past Drug Use History: None Reported <Daniel Lopez - Last Filed: 05/28/23 18:05> General Exam Limitations: no limitations <Daniel Lopez - Last Filed: 05/28/23 18:05> General appearance: alert, in no apparent distress, anxious Head exam: Present: atraumatic, normocephalic, normal inspection Eye exam: Present: normal appearance, PERRL, EOMI. Absent: scleral icterus, conjunctival injection, periorbital swelling ENT exam: Present: normal exam, mucous membranes moist Neck exam: Present: normal inspection. Absent: tenderness, meningismus, lymphadenopathy Respiratory exam: Present: normal lung sounds bilaterally. Absent: respiratory distress, wheezes, rales, rhonchi, stridor Cardiovascular Exam: Present: regular rate, normal rhythm, normal heart sounds. Absent: systolic murmur, diastolic murmur, rubs, gallop, clicks GI/Abdominal exam: Present: soft, normal bowel sounds. Absent: distended, tenderness, guarding, rebound, rigid Extremities exam: Present: normal inspection, full ROM, normal capillary refill. Absent: tenderness, pedal edema, joint swelling, calf tenderness Back exam: Present: normal inspection Neurological exam: Present: alert, oriented X3, CN II-XII intact Psychiatric exam: Present: normal affect, normal mood Skin exam: Present: warm, dry, intact, normal color. Absent: rash <Ever Mcdonald - Last Filed: 06/02/23 20:11> - General Exam Comments Initial Comments: Visual Physical Exam Vital signs reviewed General: Well-appearing, nontoxic, no acute distress. Head: Normocephalic, atraumatic Eyes: PERRLA, EOMI ENT: Airway patent Chest: Nonlabored breathing Skin: No visual rash, normal skin tone Neuro: Alert and oriented 3 Musculoskeletal: No gross abnormalities (Daniel Lopez) Course <Ever Mcdonald - Last Filed: 06/02/23 20:11> Vital Signs 05/28/23 05/28/23 05/28/23 17:58 19:32 20:00 Temperature 98.0 F Pulse Rate 85 81 Respiratory 18 Rate Blood Pressure 126/85 126/75 O2 Sat by Pulse 99 98 98 Oximetry 05/28/23 05/28/23 05/29/23 20:30 21:00 02:12 Temperature Pulse Rate 95 74 Respiratory 18 Rate Blood Pressure 132/93 129/74 O2 Sat by Pulse 100 98 Oximetry 05/29/23 06:09 Temperature 98.8 F Pulse Rate 85 Respiratory 18 Rate Blood Pressure 104/71 O2 Sat by Pulse 98 Oximetry - Reevaluation(s) Reevaluation #1: 05/28/23 20:24 Medical records reviewed (Ever Mcdonald) Reevaluation #2: 05/28/23 22:13 Patient has no change in symptoms here in the ER (Ever Mcdonald) Reevaluation #3: 05/28/23 22:14 Patient informed of results and questions answered (Ever Mcdonald) Reevaluation #4: 05/28/23 20:24 Was pt. sent in by a medical professional or institution (DARIUS Stoll, CONCRETE FINISHER APPRENTICE, urgent care, hospital, or intermediate...) When possible be specific @ -no Did you speak to anyone other than the patient for history (EMS, parent, family, police, friend...)? What history was obtained from this source @ -no Did you review nursing and triage notes (agree or disagree)? Why? @ -agree Are old charts reviewed (outside hosp., previous admission, EMS record, old EKG, old radiological studies, urgent care reports/EKG's, intermediate records)? Report findings @ -yes Differential Diagnosis (chest pain, altered mental status, abdominal pain women, abdominal pain men, vaginal bleeding, weakness, fever, dyspnea, syncope, headache, dizziness, GI bleed, back pain, seizure, CVA, palpatations, mental health, musculoskeletal)? @ -prior EKG interpreted by me (3pts min.). @ -yes X-rays interpreted by me (1pt min.). @ -yes CT interpreted by me (1pt min.). @ -no U/S interpreted by me (1pt. min.). @ -no What testing was considered but not performed or refused? (CT, X-rays, U/S, labs)? Why? @ -none What meds were considered but not given or refused? Why? @ -none Did you discuss the management of the patient with other professionals (professionals i.e. DARIUS Stoll, CONCRETE FINISHER APPRENTICE, lab, RT, psych nurse, social worker masters, investor relations specialist, teacher, safety and security officer, director case management)? Give summary @ -no Was smoking cessation discussed for >3mins.? @ -no Was critical care preformed (if so, how long)? @ -no Were there social determinants of health that impacted care today? How? (Homelessness, low income, unemployed, alcoholism, drug addiction, transportation, low edu. Level, literacy, decrease access to med. care, [facility], rehab)? @ -none Was there de-escalation of care discussed even if they declined (Discuss DNR or withdrawal of care, Hospice)? DNR status @ -no What co-morbidities impacted this encounter? (DM, HTN, Smoking, COPD, CAD, Cancer, CVA, ARF, Chemo, Hep., AIDS, mental health diagnosis, sleep apnea, morbid obesity)? @ -none Was patient admitted / discharged? Hospital course, mention meds given and route, prescriptions, significant lab abnormalities, going to OR and other pertinent info. @ - 38 female to the emergency room today for chest pain with persistent palpitations and concern for arrhythmia with history of atrial fibrillation. Patient does not fill comfortable with discharge her she has had prior ER visit as well as symptoms throughout the day in the postop period, patient will be admitted for cardiology to see Admitted Undiagnosed new problem with uncertain prognosis? @ -no Drug Therapy requiring intensive monitoring for toxicity (Heparin, Nitro, Insulin, Cardizem)? @ -no Were any procedures done? @ -no Diagnosis/symptom? @ -Chest pain, palpitations, arrhythmia Acute, or Chronic, or Acute on Chronic? @ -Acute Uncomplicated (without systemic symptoms) or Complicated (systemic symptoms)? @ -Complicated Side effects of treatment? @ -no Exacerbation, Progression, or Severe Exacerbation? @ -exacerbation Poses a threat to life or bodily function? How? (Chest pain, [place], [place], pneumonia, PE, COPD, DKA, ARF, appy, cholecystitis, CVA, Diverticulitis, Homicidal, Suicidal, threat to staff... and all critical care pts) @ -yes with palpitations and chest pain possible ACS (Ever Mcdonald) Reevaluation #5: 05/28/23 20:24 Did differential palpitations (Ever Mcdonald) - Consultations Consultation #1: Spoke with [facility] were agreeable to admit the patient (Ever Mcdonald) Chest Pain MDM <Daniel Lopez - Last Filed: 05/28/23 18:05> <Ever Mcdonald - Last Filed: 06/02/23 20:11> - MDM I completed the quick note portion of this chart signed Daniel Lopez PA-C (Daniel Lopez) 38 female to the emergency room today for chest pain with persistent palpitations and concern for arrhythmia with history of atrial fibrillation. Patient does not fill comfortable with discharge her she has had prior ER visit as well as symptoms throughout the day in the postop period, patient will be admitted for cardiology to see (Ever Mcdonald) Disposition <Daniel Lopez - Last Filed: 05/28/23 18:05> Is patient prescribed a controlled substance at d/c from ED?: No Time of Disposition: 22:10 <Ever Mcdonald - Last Filed: 06/02/23 20:11> Clinical Impression: Palpitations, Arrhythmia Disposition: ADMITTED IP TO THIS HOSP Condition: Fair
[2023-05-28 18:24] LABS: Basophils % (A) 0 %; Eosinophils % (A) 0 %; HCT 39.4 % (34.0-46.0); HGB 13.7 gm/dL (11.4-16.0); Lymphocytes # (A) 0.8 k/uL (1.0-4.8); Lymphocytes % (A) 8 %; MCH 30.1 pg (25.0-35.0); MCHC 34.8 g/dL (31.0-37.0); MCV 86.5 fL (80.0-100.0); Mean Platelet Volume 6.8; Monocytes # (A) 0.1 k/uL (0-1.0); Monocytes % (A) 1 %; Neutrophils % (A) 90 %; Platelet Count 245 k/uL (150-450); RBC 4.55 m/uL (3.80-5.40); RDW 12.5 % (11.5-15.5); WBC 10.1 k/uL (3.8-10.6)
[2023-05-28 18:46] LABS: INR 0.9 (<1.2); Partial Thromboplastin Time 25.2 sec (22.0-30.0); Prothrombin Time 10.4 sec (10.0-12.5)
[2023-05-28 19:22] LABS: ALT 33 U/L (4-34); AST 25 U/L (14-36); African American GFR (CKD) >90 (>60 ml/min/1.73 sqM); Albumin 3.9 g/dL (3.5-5.0); Alkaline Phosphatase 85 U/L (38-126); Anion Gap 9 mmol/L; Blood Urea Nitrogen 11 mg/dL (7-17); Calcium 9.2 mg/dL (8.4-10.2); Carbon Dioxide 21 mmol/L (22-30); Chloride 107 mmol/L (98-107); Glucose 135 mg/dL (74-99); Magnesium 1.7 mg/dL (1.6-2.3); Non-African American GFR(CKD) >90 (>60 ml/min/1.73 sqM); Potassium 4.3 mmol/L (3.5-5.1); Sodium 137 mmol/L (137-145); Total Bilirubin 0.7 mg/dL (0.2-1.3); Total Protein 6.7 g/dL (6.3-8.2)
[2023-05-28] MEDS ORDERED: SODIUM CHLORIDE 0.9% 1,000 ML IV STA (19:56)
[2023-05-28] MEDS ORDERED: MORPHINE SULFATE 4 MG/ML SYRINGE IVP STA (19:56)
[2023-05-28] MEDS ORDERED: KETOROLAC 15 MG/ML 1 ML VIAL IVP STA (19:56)
[2023-05-28] MEDS ORDERED: MORPHINE SULFATE 4 MG/ML SYRINGE IV PRN (22:09)
[2023-05-28] MEDS ORDERED: KETOROLAC 15 MG/ML 1 ML VIAL IVP PRN (22:09)
[2023-05-28] MEDS ORDERED: ONDANSETRON 4 MG/2 ML VIAL IVP PRN (22:09)
[2023-05-28] MEDS ORDERED: NALOXONE 0.4 MG/ML 1 ML VIAL IV PRN (22:09)
--- NOTE | 2023-05-28 22:13 | XR ---
EXAMINATION TYPE: XR chest 2V DATE OF EXAM: 05/28/2023 7:03 PM CLINICAL INDICATION:Female, 38 years old with history of Chest Pain; [facility] COMPARISON: None TECHNIQUE: XR chest 2V Frontal and lateral views of the chest. FINDINGS: Lines/Tubes: No indwelling lines are seen. Lungs/Pleura: There is no evidence of pleural effusion, focal consolidation, or pneumothorax. Pulmonary vascularity: Unremarkable. Heart/mediastinum: Cardiomediastinal silhouette is unremarkable. Musculoskeletal: No acute osseous pathology. Other findings: None IMPRESSION: No acute cardiopulmonary disease/process.
[2023-05-28] MEDS: SODIUM CHLORIDE 0.9% 1,000 ML IV SCH (23:07)
[2023-05-29 04:21] LABS: ALT 27 U/L (4-34); AST 20 U/L (14-36); African American GFR (CKD) >90 (>60 ml/min/1.73 sqM); Albumin 3.2 g/dL (3.5-5.0); Alkaline Phosphatase 71 U/L (38-126); Anion Gap 7 mmol/L; Blood Urea Nitrogen 12 mg/dL (7-17); Calcium 8.7 mg/dL (8.4-10.2); Carbon Dioxide 21 mmol/L (22-30); Chloride 110 mmol/L (98-107); Glucose 152 mg/dL (74-99); Magnesium 1.7 mg/dL (1.6-2.3); Non-African American GFR(CKD) >90 (>60 ml/min/1.73 sqM); Phosphorus 3.7 mg/dL (2.5-4.5); Potassium 3.6 mmol/L (3.5-5.1); Sodium 138 mmol/L (137-145); Total Bilirubin 0.6 mg/dL (0.2-1.3); Total Protein 5.8 g/dL (6.3-8.2)
[2023-05-29 05:59] LABS: Basophils % (A) 0 %; Eosinophils % (A) 0 %; HCT 35.2 % (34.0-46.0); HGB 12.5 gm/dL (11.4-16.0); Lymphocytes # (A) 1.7 k/uL (1.0-4.8); Lymphocytes % (A) 14 %; MCH 30.9 pg (25.0-35.0); MCHC 35.6 g/dL (31.0-37.0); MCV 86.9 fL (80.0-100.0); Mean Platelet Volume 8.1; Monocytes # (A) 0.6 k/uL (0-1.0); Monocytes % (A) 5 %; Neutrophils # (A) 9.7 k/uL (1.3-7.7); Neutrophils % (A) 80 %; Platelet Count 220 k/uL (150-450); RBC 4.05 m/uL (3.80-5.40); RDW 12.5 % (11.5-15.5); WBC 12.2 k/uL (3.8-10.6)
[2023-05-29] MEDS: SODIUM CHLORIDE 0.9% 1,000 ML IV SCH (06:09)
[2023-05-29] MEDS ORDERED: MAGNESIUM SULFATE-D5W PMX 1 GM in DEXTROSE/WATER 1 100ML.BAG IVPB ONE (06:24)
[2023-05-29] MEDS ORDERED: Magnesium Replacement Protocol 1 EACH MISC MISCELLANE PRN (06:24)
[2023-05-29 08:52] VITALS: BP 112/74; PULSE 79; RESP 16; TEMP 98.4
--- NOTE | 2023-05-29 10:50 | CA ---
Transthoracic Echo Report Name: Flor Dejesus Age: 38 Gender: F : 1985 Exam Date: 05/29/2023 09:16 Exam Location: [facility] Ht (in): 64 Wt (lb): 160 Ordering Physician: April Bautista Attending/Referring Phys: [id number], Lily Supervisor Inspection Room Azalea Hong RDCS Procedure CPT: Indications: LVF Cardiac Hx: Technical Quality: Fair Contrast 1: Total Dose (mL): Contrast 2: Total Dose (mL): MEASUREMENTS (Male / Female) Normal Values 2D ECHO LV Diastolic Diameter PLAX 3.4 cm 4.2 - 5.9 / 3.9 - 5.3 cm LV Systolic Diameter PLAX 2.5 cm IVS Diastolic Thickness 0.7 cm 0.6 - 1.0 / 0.6 - 0.9 cm LVPW Diastolic Thickness 0.9 cm 0.6 - 1.0 / 0.6 - 0.9 cm LV Relative Wall Thickness 0.5 RV Internal Dim ED PLAX 3.5 cm LA Volume 47.2 cm??? 18 - 58 / 22 - 52 cm??? LA Volume Index 25.8 cm???/m??? 16 - 28 cm???/m??? M-MODE Aortic Root Diameter MM 3.1 cm LA Systolic Diameter MM 4.1 cm LA Ao Ratio MM 1.3 AV Cusp Separation MM 2.1 cm DOPPLER AV Peak Velocity 121.5 cm/s AV Peak Gradient 5.9 mmHg AV Mean Velocity 96.8 cm/s AV Mean Gradient 4.0 mmHg AV Velocity Time Integral 26.5 cm LVOT Peak Velocity 98.8 cm/s LVOT Peak Gradient 3.9 mmHg LVOT Velocity Time Integral 22.6 cm MV Area PHT 3.7 cm??? Mitral E Point Velocity 94.3 cm/s Mitral A Point Velocity 62.1 cm/s Mitral E to A Ratio 1.5 MV Deceleration Time 206.1 ms MV E' Velocity 9.7 cm/s Mitral E to MV E' Ratio 9.7 TR Peak Velocity 242.0 cm/s TR Peak Gradient 23.4 mmHg Right Ventricular Systolic Press 28.3 mmHg FINDINGS Left Ventricle Normal Left ventricular size, wall thickness, systolic function with no obvious regional wall motion abnormalities. Normal Left ventricular diastolic filling pattern. Left ventricular ejection fraction is estimated at 55-60 %. Right Ventricle Normal right ventricular size and function. Right ventricular systolic pressure within normal limits. Right Atrium Normal right atrial size. Left Atrium Normal left atrial size. Mitral Valve Structurally normal mitral valve. Trace to mild mitral regurgitation. Aortic Valve Trileaflet aortic valve. No aortic valve stenosis or regurgitation. Tricuspid Valve Structurally normal tricuspid valve. Mild tricuspid regurgitation. Pulmonic Valve Trace pulmonic regurgitation. Structurally normal pulmonic valve. Pericardium No pericardial effusion. Aorta Normal size aortic root and proximal ascending aorta. CONCLUSIONS Normal LV size and systolic function. No significant abnormality on the Doppler exam. No pericardial effusion Previewed by: Dr. Alba Flores MD (Electronically Signed) Final Date: 29 May 2023 10:49
--- NOTE | 2023-05-29 21:19 | CONS ---
CONSULTATION HISTORY OF PRESENT ILLNESS: Flor Dejesus is a 38-year-old young lady who came into the hospital following a procedure that she had. The renal stones were removed by the urologist, Dr. Alfaro. After the procedure, she went home and then started having some midsternal sharp pains atypical in nature and apparently she also has a remote history of 1 bout of atrial fibrillation. However, following this, she had some palpitations and fluttering sensation and came into the hospital. After arrival on reviewing the data from the emergency room and here, there is no evidence of any significant arrhythmia. She has been in sinus rhythm, resting comfortably. She has no chest pain, shortness of breath or palpitation at the time of my evaluation. Her thyroid functions are normal. Her troponins are normal. Laboratory data is unremarkable and on reviewing the clinical axis, there is no significant arrhythmia. White count is slightly elevated, but she recently had a procedure as well. Asymptomatic at the time of my evaluation. PAST MEDICAL HISTORY: 1. Remarkable for renal stones. 2. History of atrial fib per patient not verified. She does not take any significant prescription medications. She has been taking Mounjaro, the reason for this is unclear. Her blood sugars have been slightly elevated. She probably has some borderline diabetes. PHYSICAL EXAMINATION: VITAL SIGNS: Blood pressure is 118/70, pulse rate is 70 per minute and regular. HEENT: Unremarkable. Fundus was not examined by me. NECK: Supple. No JVD. I do not hear a carotid bruit. HEART: Reveals S1, S2 heard normally. No rub, murmur or gallop. LUNGS: Clear. ABDOMEN: Soft, nontender. MUSCULOSKELETAL: Lower extremities reveal normal pulses. No edema. CENTRAL NERVOUS SYSTEM: Normal. DIAGNOSTIC DATA: EKG revealed sinus mechanism, no acute changes. IMPRESSION: 1. Palpitations without any documented evidence of arrhythmia. 2. Atypical chest pain. RECOMMENDATIONS: I am recommending a 72 hour Holter. The thyroid functions are normal. An echocardiogram will be performed and she can then be discharged and we can perform a stress test as an outpatient once she has recovered from her recent procedure for renal stones. I discussed my thoughts in detail with the patient. Thank you very much for the consult. MMODL / IJN: [id number] /
--- NOTE | 2023-05-30 02:20 | HP ---
HISTORY AND PHYSICAL This is a combined history and physical and discharge summary. CHIEF COMPLAINT: Palpitations. HISTORY OF PRESENT ILLNESS: This 38-year-old woman with a past history of atrial fibrillation, was complaining of palpitation. The patient also had some developing chest pains also. The patient was monitored closely and Cardiology saw the patient and recommended outpatient monitoring and the patient may be discharged at this time. There is no history of fever, rigors, chills. The basic labs are also within normal limits. The TSH was 0.643. PAST MEDICAL HISTORY: Reviewed. Include atrial fibrillation, reveals stent. Rest of the history and chart were also reviewed. HOME MEDICATIONS: Reviewed include Ketoralac. Dose and rest of medications noted. ALLERGIES: Amoxicillin. FAMILY HISTORY: No history of heart disease or strokes in the family. SOCIAL HISTORY: Occasional alcohol intake. REVIEW OF SYSTEMS: Fourteen-point review is negative except as mentioned. PHYSICAL EXAMINATION: VITAL SIGNS: Pulse 79, blood pressure n, respirations 16. HEENT: Conjunctivae normal. NECK: No JVD CARDIOVASCULAR: S1, S2. RESPIRATIONS: Breath sounds diminished at the bases. ABDOMEN: Soft, nontender. LEGS: No edema, no cyanosis. LABORATORY DATA: WBC 12.2. Other labs are noted. ASSESSMENT: 1. Palpitations, for evaluation, possibly cardiac arrhythmia. 2. History of atrial fibrillation. 4. History of appendectomy. 5. Multiple medical issues. 6. Family history of coronary artery disease. RECOMMENDATION: This 38-year-old woman presented to the hospital, is being monitored overnight. The plastics engineering teacher did not show any acute abnormality. Cardiology saw the patient. 2D echo was ordered. If the 2D echo is within normal limits, the patient will be discharged with further plans to continue the home medications. TSH is within normal limits. Recommend repeat TSH down the line. Otherwise, recommend follow up with Cardiology with monitoring. Further recommendations to follow. See orders for details. Follow up with Dr. Anabell Lynne as advised. MMSHEYLAL / DANUTAN: [id number] / FELICIA
--- NOTE | 2023-06-04 12:39 | HM ---
HOLTER MONITOR REPORT STUDY PERFORMED: A 72-hour Holter. INDICATION: Palpitations. FINDINGS: Underlying rhythm is sinus with an average heart rate of 80 beats per minute. Heart rate varies from 64 beats per minute to 134 beats per minute. There were no episodes of sustained ventricular or supraventricular tachyarrhythmias. There were no episodes of more than 2-second pauses. CONCLUSIONS: This 72-hour Holter revealed sinus rhythm with episodes of sinus tachycardia and a 3- beat run of nonsustained VT. SHEYLAL / DANUTAN: [id number] /
== END 2023-05-29 12:34 | disposition home or self-care (01) ==
LOC: EC 17:56 → 6NMEDSUR 22:09
PROVIDERS: ADMIT Hospitalist; ATTEND Hospitalist
DX: R00.2 Palpitations (principal); R07.89 Other chest pain; Z98.890 Other specified postprocedural states; R06.00 Dyspnea, unspecified; I48.91 Unspecified atrial fibrillation; Z88.1 Allergy status to other antibiotic agents; Z88.0 Allergy status to penicillin; Z87.442 Personal history of urinary calculi; Z90.49 Acquired absence of other specified parts of digestive tract; Z82.49 Family history of ischemic heart disease and other diseases of the circulatory system
CPT/HCPCS: 96376; 96361 ×2; 96365; 96375; 99285; 36415; 93005; 93225; 93226; 93306; 80053 ×2; 84443; 83735 ×2; 84100; 84484 ×2; 85025 ×2; 85610; 85730; 71046; G0378 ×2; J2270; J3475; J1885 ×2